=== PATIENT | female | born 1995 | race Caucasian/White ===

== ENCOUNTER 2018-11-12 16:15 | Outpatient (CLI) | payer OTHER, SELFPAY ==
--- NOTE | 2018-11-12 16:08 | DI.US_ITS ---
SYMPTOMS/DIAGNOSIS: POSITIVE TEST, UTERINE CRAMPING, ? ECTOPIC OB ULTRASOUND: Many abnormalities cannot be diagnosed. A normal exam does not exclude a congenital anomaly. Radiology No. [id number] LMP: 10/01/18 Exam Date: 11/12/18 [facility] wks days on EDC ([facility]) Confirmed: HISTORY: PREDICTED GESTATIONAL AGE NUMBER 6+0 weeks with a range of week to weeks. 1 Determined by___1STUS_X__LMP___HISTORY PLACENTA PRESENTATION Grade Cephalic___ Anterior___Posterior___ Breech____ Right Left Transverse(head right___ Fundal___Low-lying___Previa___ Transverse(head left___ Varying BIOMETRY AMNIOTIC FLUID BPD: mm weeks Normal HC: mm weeks AC: mm weeks FL: mm weeks AMNIOTIC FLUID INDEX >26 WK CRL: 1.9 mm 8+3 weeks Cisterna Magna: mm CI: RUQ: LUQ Cerebellum: cm EFW: grams Percentile RLQ: LLQ Yolk sac: 6 mm Total: cms Composite AGE= 8+3 wks EDC by US: 06/21/19 BIOPHYSICAL PROFILE ANATOMY IDENTIFIED SCORE 0/2 Heart: 4-Chamber___Rate:BPM 171 LVOT: RVOT: Amniotic Fluid(>2cms)____ Stomach: Kidneys: Respirations (>30 secs) Bladder: Post. Fossa: Body Flex/Extension 3 vessel cord: Ventricles: cord insertion: Lips:____ Extremity Flex/Extension spinal morphology: Nose: Total Score= Palate: NS=not seen COMMENTS: A transvaginal examination was carried out. A viable intrauterine lizama is demonstrated. The cardiac rate is 171 bpm. A yolk sac is identified. Based on the crown-rump measurements, a gestational age of 8 weeks and 3 days is suggested. The right ovary measures 2.8 x 1.6 x 1.8 cm and appears to contain a corpus luteum cyst. Incidental note is made of cholelithiasis in this patient. SUMMARY: No evidence of an ectopic . A viable 8.3 week intrauterine lizama is identified. Note is made of cholelithiasis. The kidneys are intact.
--- NOTE | 2018-11-12 16:59 | DI.VRAD_ITS ---
EXAM: US Retroperitoneal Limited, Kidneys EXAM DATE/TIME: 11/12/2018 4:07 PM CLINICAL HISTORY: 23 years old, female; Signs and symptoms; Lmp or gestational age (in weeks): Lmp 1-1-19 (? Unsure of dates); Other: Positive test; Mild mid pelvic cramping; TECHNIQUE: Real-time ultrasound of the retroperitoneum with image documentation. Examination was focused on the kidneys. COMPARISON: US PELVIS TRANSVAG 12/29/2013 3:41 PM FINDINGS: Gallbladder: A gallstone with layering sludge is seen in the gallbladder with no pericholecystic fluid or gallbladder wall thickening. Sonographic Whitmore's was not reported with the exam. Right kidney: No stones. No hydronephrosis. Left kidney: No stones. No hydronephrosis. IMPRESSION: Cholelithiasis without other acute findings. EXAM: US First Trimester, Transabdominal and US , Transvaginal EXAM DATE/TIME: 11/12/2018 4:07 PM CLINICAL HISTORY: 23 years old, female; Signs and symptoms; Lmp or gestational age (in weeks): Lmp 1-1-19 (? Unsure of dates); Other: Positive test; Mild mid pelvic cramping; TECHNIQUE: Real-time transabdominal obstetrical ultrasound of the maternal pelvis and a first trimester , less than 14 weeks 0 days, with image documentation. Transvaginal imaging was used for better evaluation of the fetus and adnexa. COMPARISON: US PELVIS TRANSVAG 12/29/2013 3:41 PM FINDINGS: GESTATION: Gestation: There is a single intrauterine gestation. [place]-rump length measurement is 1.9 cm for an estimated gestational age of 8 weeks 3 days. Normal-appearing yolk sac. Heart rate: 171 beats per minute Placenta: Unremarkable. No subchorionic bleed. Amniotic fluid: Amniotic and chorionic fluid are normal for gestational age. MATERNAL: Uterus: Unremarkable. Cervix: Cervix is closed. Right adnexa: There is an irregular hyperdense crenelated lesion in the right ovary, consistent with a corpus luteum. Left adnexa: Unremarkable. Intraperitoneal: No intraperitoneal free fluid. IMPRESSION: 1. Viable intrauterine gestation with estimated gestational age of 8 weeks 3 days. 2. No acute findings. Dictated and Authenticated by: Ellis Flannery MD. Ordering:PAUL Morrell MD
== END 2018-11-12 16:35 ==
PROVIDERS: PCP Nurse Practitioner; Visit Provider Nurse Practitioner Adult Health
DX: Z34.91 Encounter for supervision of normal pregnancy, unspecified, first trimester (principal); K80.20 Calculus of gallbladder without cholecystitis without obstruction; N83.11 Corpus luteum cyst of right ovary; R10.9 Unspecified abdominal pain
CPT/HCPCS: 76817

== ENCOUNTER 2018-12-12 09:17 | Outpatient (CLI) | payer OTHER, SELFPAY ==
[2018-12-12 10:31] LABS: Abs Immature Grans 0.02 k/cumm (0.0-0.09); Absolute Basophil Count 0.02 k/cumm (0.0-0.2); Absolute Eosinophil Count 0.11 k/cumm (0.0-0.7); Absolute Monocyte Count 0.76 k/cumm (0.11-0.7); Absolute Neutrophil Count 5.79 k/cumm (1.2-6.7); Basophils % 0.2; Eosinophils % 1.2; HCT 36.3 % (36.0-46.0); HGB 12.5 g/dL (12.0-15.5); Immature Grans % 0.2; Lymphocytes % 29.5; Mean Corp. HGB Concentration 34.4 g/dL (32.0-36.0); Mean Corpuscular Hemoglobin 28.5 pg (27.0-33.0); Mean Corpuscular Volume 82.9 fL (80-95); Mean Platelet Volume 10.9 fL (8.0-11.0); Neutrophils % 60.9; Platelet Count 316 x1000/uL (130-400); RBC 4.38 m/cumm (4.00-5.20); RBC Distribution Width 13.6 % (11.7-14.6)
[2018-12-12 11:18] LABS: TSH (W/Ref FT4) 2.73 uIU/mL (0.358-3.74)
[2018-12-13 09:35] LABS: Hepatitis C Ab w Rflx HCV PCR Negative (NEGAT)
[2018-12-13 10:29] LABS: HIV-1/2 Ag & Ab Screen Negative (NEGAT)
[2018-12-13 10:30] LABS: Hepatitis B Surface Ag Negative (NEGAT)
[2018-12-13 12:17] LABS: Rubella IgG Ab (UVM) Negative; Varicella IgG Antibody Positive
[2018-12-13 13:20] LABS: Chlamydia Result Negative; GC Result Negative; Specimen Description URINE
== END 2018-12-12 09:37 ==
PROVIDERS: PCP Nurse Practitioner; Visit Provider Obstetrics & Gynecology Maternal & Fetal Medicine
DX: Z34.91 Encounter for supervision of normal pregnancy, unspecified, first trimester (principal); Z01.84 Encounter for antibody response examination; Z11.3 Encounter for screening for infections with a predominantly sexual mode of transmission; Z11.4 Encounter for screening for human immunodeficiency virus [HIV]
CPT/HCPCS: 36415; 86787; 86803; 86900; 86901; 87340; 87389; 87491; 87536; 87591; 84443; 85025; 86762

== ENCOUNTER 2018-12-17 13:51 | Outpatient (CLI) | payer OTHER, SELFPAY ==
[2018-12-17 15:17] LABS: Glucose,1 Hr (Glucola) 121 mg/dL (80-140)
[2018-12-23 13:18] LABS: Misc Referral (MAYO) See Comments
== END 2018-12-17 14:11 ==
PROVIDERS: PCP Nurse Practitioner; Referring Provider Obstetrics & Gynecology; Visit Provider Obstetrics & Gynecology Maternal & Fetal Medicine
DX: Z34.91 Encounter for supervision of normal pregnancy, unspecified, first trimester (principal)
CPT/HCPCS: 36415; 82950; 85025

== ENCOUNTER 2018-12-25 19:53 | Outpatient (REF) | payer OTHER, SELFPAY | END 2018-12-25 20:13 | LOC: LBN 19:53 | PROVIDERS: PCP Nurse Practitioner; Visit Provider Obstetrics & Gynecology | DX: N39.0 Urinary tract infection, site not specified (principal) | CPT/HCPCS: 82565; 87086 ==

== ENCOUNTER 2019-02-11 14:01 | Outpatient (CLI) | payer OTHER, SELFPAY ==
[2019-02-11 18:36] LABS: ESR 55 MM/HR (0-20)
[2019-02-12 10:13] LABS: Rheumatoid Factor 9 IU/mL (<12.5)
[2019-02-12 15:03] LABS: ANA Interpretation Negative (NEGAT)
[2019-02-13 11:04] LABS: SS-A Antibody 1.4 Units (<20); SS-B (La) Ab, IgG 6.2 Units (<20)
[2019-02-13 20:34] LABS: Dilute Russell Viper Venom 37.6 secs (27.2-36.9); LA Cascade Summary SEE COMMENTS; Silica Clotting Time 45.1 sec (30.2-48.4)
== END 2019-02-11 14:21 ==
PROVIDERS: Internal Medicine; Obstetrics & Gynecology Maternal & Fetal Medicine; PCP Nurse Practitioner; Visit Provider Obstetrics & Gynecology
DX: M06.9 Rheumatoid arthritis, unspecified (principal); Z3A.15 15 weeks gestation of pregnancy; O09.92 Supervision of high risk pregnancy, unspecified, second trimester; M08.00 Unspecified juvenile rheumatoid arthritis of unspecified site
CPT/HCPCS: 36415; 85652; 86147; 87116; 86038; 86235; 86431

== ENCOUNTER 2019-02-13 15:38 | Outpatient (CLI) | payer OTHER, SELFPAY ==
[2019-02-13 16:52] LABS: ALT 17 U/L (12-78); AST 10 U/L (15-37); Alkaline Phosphatase 57 U/L (46-116); Anion Gap 15.3 mmol/L (3-11); BUN 6 mg/dL (7-18); Bilirubin, Total 0.1 mg/dL (0.2-1.0); CO2 18.7 mmol/L (21.0-32.0); CREATININE 0.68 mg/dL (0.55-1.02); Calcium 8.7 mg/dL (8.5-10.1); Chloride 103 mmol/L (98-107); Glucose 133 mg/dL (70-100); Potassium 3.4 mmol/L (3.5-5.1); Sodium 137 mmol/L (136-145); Total Protein 6.5 g/dL (6.4-8.2)
== END 2019-02-13 15:58 ==
PROVIDERS: PCP Nurse Practitioner; Visit Provider Obstetrics & Gynecology
DX: R21 Rash and other nonspecific skin eruption (principal)
CPT/HCPCS: 36415; 80053

== ENCOUNTER 2019-03-26 10:48 | Outpatient (CLI) | payer OTHER, SELFPAY ==
[2019-03-26 14:51] LABS: Abs Immature Grans 0.05 k/cumm (0.0-0.09); Absolute Basophil Count 0.01 k/cumm (0.0-0.2); Absolute Eosinophil Count 0.07 k/cumm (0.0-0.7); Absolute Lymphocyte Count 1.46 k/cumm (1.2-3.4); Absolute Monocyte Count 0.57 k/cumm (0.11-0.7); Absolute Neutrophil Count 6.21 k/cumm (1.2-6.7); Basophils % 0.1; Eosinophils % 0.8; HCT 34.2 % (36.0-46.0); HGB 11.3 g/dL (12.0-15.5); Immature Grans % 0.6; Lymphocytes % 17.4; Mean Corpuscular Hemoglobin 28.5 pg (27.0-33.0); Mean Corpuscular Volume 86.4 fL (80-95); Mean Platelet Volume 10.3 fL (8.0-11.0); Monocytes % 6.8; Neutrophils % 74.3; Platelet Count 320 x1000/uL (130-400); RBC 3.96 m/cumm (4.00-5.20); RBC Distribution Width 14.3 % (11.7-14.6); White Blood Cell Count 8.37 k/cumm (4.4-10.8)
[2019-03-26 14:58] LABS: Glucose,1 Hr (Glucola) 120 mg/dL (80-140)
== END 2019-03-26 11:08 ==
PROVIDERS: PCP Nurse Practitioner; Visit Provider Obstetrics & Gynecology
DX: Z34.92 Encounter for supervision of normal pregnancy, unspecified, second trimester (principal)
CPT/HCPCS: 36415; 82950; 85025

== ENCOUNTER 2019-04-11 09:22 | Emergency (ER) | payer OTHER, SELFPAY ==
[2019-04-11] VITALS (31 sets, daily range): BP systolic 103–142; BP diastolic 58–94; PULSE 91–119; RESP 13–23; TEMP 36.6; O2SAT 96–100
--- NOTE | 2019-04-11 09:43 | DI.US_ITS ---
SYMPTOMS/DIAGNOSIS: SHORTNESS OF BREATH, TACHYCARDIA, BILATERAL LOWER EXTREMITY ULTRASOUND: The deep veins of the lower extremities were evaluated sonographically. There is normal compression of the deep veins of each lower extremity. No evidence of a deep venous thrombus is seen in either lower extremity. The saphenofemoral junctions appear well maintained bilaterally. No focal fluid collections are seen in the soft tissues bilaterally. IMPRESSION: No evidence of a deep venous thrombus in either lower extremity. The findings were discussed with the Emergency Department on the date of the examination.
--- NOTE | 2019-04-11 09:47 | ED.GENADUL_ITS ---
Discharge Plan Disposition Patient Disposition: HOME Condition: Stable Discharge Details Chief Complaint: GenMedical Clinical Impression: Tachycardia, , Anemia Primary Care Provider: Tara Kumar ED Provider: Joe Villar Home Meds and New Rx's Prescriptions: Continued prenat.vits,jim,irl-qdlv-[id number] tablet 1 tab PO DAILY RF: 0 pantoprazole [Protonix] 20 mg tablet,delayed release (DR/EC) 20 mg PO DAILY Qty: 30 RF: 2 hydroxychloroquine [Plaquenil] 200 mg tablet 200 mg PO BID Qty: 60 RF: 2 folic acid 1 MG tablet 1 mg PO DAILY RF: 0 acetaminophen 325 MG tablet 650 mg PO PRN PRNQty: 0 RF: 0 Discharge Instructions Instructions: (ED), Anemia (ED) Additional Instructions: Continue to stay well-hydrated and get plenty of rest during . Continue to take your vitamins preferably with an iron supplementation. Return to the emergency department for new or significant worsening of symptoms otherwise keep your appointment [facility] as already arranged for next week Stand Alone Forms: Work Release Referrals: [facility] [Provider Group] (As previously scheduled) Discharge Data Discharge Date/Time-TO BE ENTERED AT DEPARTURE: 04/11/19 13:55 Medical Decision Making Patient presenting to the emergency department for chief complaint of tachycardia. Patient states that yesterday evening while at work she noted her heart rate to be in the 140s along with some lightheadedness. 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 Patient states that she went home from work at that point and has continued to have tachycardia in the upper 90s to the 110s. Patient denies any chest pain but does state some dyspnea on exertion and generalized malaise. Patient states that she is 29 weeks . Patient has past medical history of rheumatoid arthritis otherwise denies any cardiac history. Physical exam shows nontoxic well-appearing patient with tachycardia on exam otherwise clear lung sounds, no tachypnea, no hypoxia, mildly elevated blood pressure, otherwise nondiagnostic exam. Plan to do labs, EKG, and bilateral lower extremity ultrasounds for concern of PE. Review of labs show normal thyroid, nonspecific anemia, elevated d-dimer of 1000, elevated anion gap and slightly low magnesium otherwise nondiagnostic CMP, unremarkable urine. Patient was given 500 mL's of fluid but persistently remains tachycardic and has dyspnea on exertion when using the restroom. Given this I did discuss with patient risk versus benefit to obtain informed consent for further imaging and rule out of PE. After thorough discussion of risk of radiation exposure to both her and the baby, possible other diagnosis, and answering all questions patient had we decided to perform CT imaging of the chest. staff field engineer was present during this discussion. CT was performed and reviewed by radiologist and shows no acute signs of thrombosis/embolism. Patient was informed of these results. I did speak with OB on-call Dr. Cash whom stated she would follow-up with patient next week. Return precautions were discussed. I feel that there is high likelihood that this is normal tachycardia in and possibly secondary to patient's anemia. After discussion of diagnosis and plan of care patient has no further needs, questions, or concerns and states clear understanding to return to the emergency department for any worsening symptoms. ECG Data Prior ECG tracings: not available for review Interpretation: EKG shows sinus tachycardia, with rate of 107, there is present very subtle findings of S1, Q3, T3. No STEMI. HPI General Mode of arrival: ambulatory . Date/Time Provider Initiated Documentation: 04/11/19 09:22 . Limitations to Documentation: no limitations . Information obtained by: patient and RN notes reviewed . History of Present Illness 23 year old F presents to the emergency department with the chief complaint of Tachycardia, dyspnea on exertion, Quality is described as other (Denies any pain or discomfort), and is localized to the chest. Patient started experiencing this hour(s) (7) and it has been constant. No relieving factors improve symptom(s), No exacerbating factors reported . Patient notes no other symptoms.. Patient did receive the following treatments prior to arrival, none Related Data Home Medications Medication Instructions Recorded Confirmed folic acid 1 mg PO DAILY 10/19/15 04/11/19 acetaminophen 650 mg PO PRN PRN #0 09/02/17 04/11/19 prenat.vits,jim,ufm-qnzt-[id number] 1 tab PO DAILY 12/12/18 04/11/19 pantoprazole 20 mg tablet,delayed 20 mg PO DAILY #30 tab 12/25/18 04/11/19 release hydroxychloroquine 200 mg tablet 200 mg PO BID #60 tab 02/20/19 04/11/19 Previous Rx's Medication Instructions Recorded acetaminophen 650 mg PO PRN PRN #0 09/02/17 pantoprazole 20 mg tablet,delayed 20 mg PO DAILY #30 tab 12/25/18 release hydroxychloroquine 200 mg tablet 200 mg PO BID #60 tab 02/20/19 Allergies Allergy/AdvReac Type Severity Reaction Status Date / Time clindamycin Allergy Severe Verified 03/26/19 15:13 amoxicillin trihydrate Allergy Intermediate other Verified 03/26/19 15:13 [From Augmentin] Penicillins Allergy Intermediate blisters/hi Verified 03/26/19 15:13 ves potassium clavulanate Allergy Intermediate other Verified 03/26/19 15:13 [From Augmentin] capsaicin [From Capzasin] Allergy topical, Verified 03/26/19 15:13 swelling redness menthol [From Capzasin] Allergy topical, Verified 03/26/19 15:13 swelling redness General Stated Complaint: GenMedical ALVARO: 3 Review of Systems Constitutional Denies chills, Denies fever(s) and Reports malaise Cardiovascular Reports as per HPI, Denies chest pain, Denies chest pain with activity, Denies syncope, Denies irregular heart rhythm, Reports lightheadedness, Reports palpitations and Reports dyspnea on exertion Respiratory Denies cough, Denies hemoptysis and Reports dyspnea on exertion Gastrointestinal Denies abdominal pain, Denies nausea and Denies vomiting Genitourinary Reports urinary frequency, Denies dysuria and Denies urinary urgency Neurologic Denies syncope Endocrine Reports palpitations PFSH Medical History 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 Do you feel safe in your relationship?: Yes Additional Social history: Mother is Evie RN on BC. History History 1 Para Hx # Term Pregnancies Multiple births Hx # Pregnancies Ectopic pregnancies AB induced Hx Number of Living Children AB spontaneous Exam Const General: cooperative, healthy appearing, comfortable, no acute distress, not diaphoretic and not ill appearing Nutritional Appearance: average body habitus Orientation: alert, awake and oriented x3 Limitations: mental status not altered Neck Neck: normal visual inspection, full ROM, trachea midline, supple and no anterior neck swelling Resp Effort & Inspection: normal respiratory effort and able to speak in complete sentences Auscultation: clear to auscultation bilaterally Cardio Jugular venous pressure: no JVD Palpation: normal PMI Rate: tachycardic Rhythm: regular rhythm Heart Sounds: S1 normal, S2 normal, no click, no gallops, no murmurs and no rubs Bruits: no abdominal aortic bruits and no carotid bruits Pulses: radial pulses present bilaterally 2+ Neuro General: alert, awake, oriented x3, tone normal and moves all extremities Course Vital Signs Temperature 36.6 C 04/11/19 09:25 Pulse 110 H 04/11/19 09:25 Respiratory Rate 18 04/11/19 09:25 Blood Pressure 142/63 H 04/11/19 09:25 Pulse Oximetry 100 04/11/19 09:25 Temperature 36.6 C 04/11/19 09:25 Temperature Source Skin 04/11/19 09:25 Pulse 110 H 04/11/19 09:25 Respiratory Rate 18 04/11/19 09:29 Respiratory Effort Non-Labored 04/11/19 09:29 Respiratory Depth Normal 04/11/19 09:29 Respiratory Pattern Normal 04/11/19 09:29 Blood Pressure 142/63 H 04/11/19 09:25 Blood Pressure Position Sitting 04/11/19 09:25 Pulse Oximetry 100 04/11/19 09:25 Oxygen Delivery Method Room Air 04/11/19 09:25 Oxygen Flow Rate 0 04/11/19 09:25
[2019-04-11 10:07] LABS: Absolute Basophil Count 0.02 k/cumm (0.0-0.2); Absolute Eosinophil Count 0.07 k/cumm (0.0-0.7); Absolute Lymphocyte Count 1.09 k/cumm (1.2-3.4); Absolute Monocyte Count 0.95 k/cumm (0.11-0.7); Absolute Neutrophil Count 4.88 k/cumm (1.2-6.7); Basophils % 0.3; HCT 31.9 % (36.0-46.0); HGB 10.6 g/dL (12.0-15.5); Immature Grans % 1.4; Lymphocytes % 15.3; Mean Corp. HGB Concentration 33.2 g/dL (32.0-36.0); Mean Corpuscular Hemoglobin 28.3 pg (27.0-33.0); Mean Corpuscular Volume 85.3 fL (80-95); Mean Platelet Volume 10.4 fL (8.0-11.0); Monocytes % 13.4; Neutrophils % 68.6; Platelet Count 319 x1000/uL (130-400); RBC 3.74 m/cumm (4.00-5.20); RBC Distribution Width 14.3 % (11.7-14.6); White Blood Cell Count 7.11 k/cumm (4.4-10.8)
[2019-04-11] MEDS: Normal Saline 500 ML IV (10:17)
[2019-04-11 10:23] LABS: INR 0.9 (0.9-1.1); Prothrombin Time 9.3 sec (9.3-11.0)
[2019-04-11 10:27] LABS: ALT 14 U/L (12-78); AST 12 U/L (15-37); Albumin 2.6 g/dL (3.4-5.0); Alkaline Phosphatase 87 U/L (46-116); Anion Gap 14.4 mmol/L (3-11); BUN 4 mg/dL (7-18); Bilirubin, Total 0.2 mg/dL (0.2-1.0); CO2 18.6 mmol/L (21.0-32.0); CREATININE 0.46 mg/dL (0.55-1.02); Calcium 8.6 mg/dL (8.5-10.1); Chloride 106 mmol/L (98-107); Glucose 97 mg/dL (70-100); Potassium 3.5 mmol/L (3.5-5.1); Sodium 139 mmol/L (136-145); Total Protein 6.5 g/dL (6.4-8.2)
[2019-04-11 10:28] LABS: Bilirubin Negative (Negative); Blood Negative (Negative); Clarity Clear (Clear); Glucose Negative (Negative); Ketones Negative (Negative); Leukocyte Esterase Negative (Negative); Nitrite Negative (Negative); Specific Gravity 1.015 (1.005-1.025); Urobilinogen 0.2 EU/dL (Up TO 0.2); pH 6.5 (5-8)
--- NOTE | 2019-04-11 10:29 | NUR.NOTE ---
Nursing Note: Pt to DI
[2019-04-11 10:30] LABS: Magnesium 1.6 mg/dL (1.8-2.4)
[2019-04-11 10:34] LABS: D-Dimer 1000 ng/mlFEU (<500); PTT Activated 24.1 sec (21.0-31.4); Troponin I < 0.05 ng/mL (0.00-0.06)
[2019-04-11 10:36] LABS: NT-proBNP < 5 pg/mL
[2019-04-11 11:07] LABS: TSH (W/Ref FT4) 2.87 uIU/mL (0.358-3.74)
--- NOTE | 2019-04-11 12:30 | DI.CT_ITS ---
SYMPTOMS/DIAGNOSIS: SHORTNESS OF BREATH, TACHYCARDIA, CT ANGIOGRAPHY OF THE CHEST: CT angiography was performed with multi slice acquisition and multi planar and 3D reconstruction. CT angiography of the chest was performed according to protocol. There is no evidence of a pulmonary embolus. The thoracic aorta is intact and normal caliber. The heart size is within normal limits. No significant pericardial effusion is seen. No evidence of right ventricular dysfunction is present. No significant thoracic adenopathy, effusion or pneumothorax is identified. The lungs are clear. The tracheobronchial tree is unremarkable. The bones appear intact. No acute abnormality is seen in the upper abdominal images. There is cardiac and thoracic aortic motion noted. IMPRESSION: No acute abnormality. No evidence of an acute pulmonary embolus, thoracic aortic dissection or aneurysm. The findings were discussed with Joe Villar of the Emergency Department on the date of the examination.
[2019-04-11] MEDS: Omnipaque 350 MG/ML 100 ML BTL 79 ML IJ (12:31)
--- NOTE | 2019-04-11 13:54 | NUR.NOTE ---
Nursing Note: pt resting in bed, no signs of distress. Facial expression and body language relaxed. Discharged to home. instructions reviewed, understanding verbalized. VSS IV removed.
== END 2019-04-11 13:55 | disposition home or self-care (01) ==
PROVIDERS: Emergency Provider Nurse Practitioner Family; PCP Nurse Practitioner
DX: O99.012 Anemia complicating pregnancy, second trimester (principal); O99.412 Diseases of the circulatory system complicating pregnancy, second trimester; R00.0 Tachycardia, unspecified; R06.00 Dyspnea, unspecified; Z3A.29 29 weeks gestation of pregnancy
CPT/HCPCS: 36415; 71275; 80053; 93005; 96360; 99285; 81003; 83735; 83880; 84443; 84484; 85025; 85379; 85610; 85730; 93010; 93970; J3490

== ENCOUNTER 2019-04-18 01:06 | Outpatient (CLI) | payer OTHER, SELFPAY ==
--- NOTE | 2019-04-18 08:17 | MERGE_ITS ---
*[facility]* *[facility]* [address] [place] [address] Date of study: 04/18/2019 Transthoracic Echocardiography M-mode, complete 2D, complete spectral Doppler, and color Doppler *STUDY CONCLUSIONS* Impressions: Normal study. Summary: 1. Left ventricle: The cavity size was normal. Wall thickness was normal. Systolic function was normal. The estimated ejection fraction was 60-65%. Wall motion was normal; there were no regional wall motion abnormalities. 2. Right ventricle: The cavity size was normal. Wall thickness was normal. Systolic function was normal. 3. Pulmonary arteries: Pulmonary systolic pressure was within the normal range. *PATIENT PRESENTATION* Height: 160cm (63in ) S/D Pressure: 126 / 73 Weight: 88.9kg (195.6lb ) BSA: 2.03m^2 Test start time: 08:15 AM. Test stop time: 09:00 AM. PERFORMING Unknown PERFORMING [facility] NURSE CASE MANAGER Christi Jacob CONSULTING Juan Rayo ORDERING Juan Rayo REFERRING Juan Rayo *PROCEDURE DATA* Procedure information: This study was interpreted by [facility]. Pertinent images and digital data are archived for permanent storage and are available for subsequent review. No prior study was available for comparison. Study status: Routine. Transthoracic echocardiography. M-mode, complete 2D, complete spectral Doppler, and color Doppler. A Transthoracic Echocardiogram was performed. Scanning was performed from the parasternal, apical, subcostal, and suprasternal notch acoustic windows. Images were obtained using an [employer] sc 2000 cardiac ultrasound machine. Image quality was fair. Study completion: The patient tolerated the procedure well. History: PMH: 30 weeks gestation SOB, Tachycardia. *CARDIAC ANATOMY* Left ventricle: The cavity size was normal. Wall thickness was normal. Systolic function was normal. The estimated ejection fraction was 60-65%. Wall motion was normal; there were no regional wall motion abnormalities. Aortic valve: Trileaflet; normal thickness leaflets. Mobility was not restricted. Doppler: Transvalvular velocity was within the normal range. There was no stenosis. There was no significant regurgitation. VTI ratio of LVOT to aortic valve: 0.85. Valve area (VTI): 2.6cm^2. Indexed valve area (VTI): 1.3cm^2/m^2. Peak velocity ratio of LVOT to aortic valve: 0.79. Valve area (Vmax): 2.4cm^2. Indexed valve area (Vmax): 1.2cm^2/m^2. Mean velocity ratio of LVOT to aortic valve: 0.67. Valve area (Vmean): 2.1cm^2. Indexed valve area (Vmean): 1cm^2/m^2. Mean gradient (S): 4.1mm Hg. Peak gradient (S): 7.2mm Hg. Aorta: Aortic root: The aortic root was normal in size. Ascending aorta: The ascending aorta was normal in size. Mitral valve: Structurally normal valve. Mobility was not restricted. Doppler: Transvalvular velocity was within the normal range. There was no evidence for stenosis. There was no significant regurgitation. Valve area by pressure half-time: 4.2cm^2. Indexed valve area by pressure half-time: 2.1cm^2/m^2. Peak gradient (D): 6.4mm Hg. Left atrium: The atrium was normal in size. Right ventricle: The cavity size was normal. Wall thickness was normal. Systolic function was normal. Pulmonic valve: Poorly visualized. Doppler: Transvalvular velocity was within the normal range. There was no evidence for stenosis. There was mild regurgitation. Tricuspid valve: Structurally normal valve. Doppler: Transvalvular velocity was within the normal range. There was no evidence for stenosis. There was trivial regurgitation. Pulmonary artery: Poorly visualized. Pulmonary systolic pressure was within the normal range. Right atrium: The atrium was normal in size. Pericardium: There was no pericardial effusion. Systemic veins: Inferior vena cava: The vessel was normal in size. The respirophasic diameter changes were in the normal range (greater than or equal to 50%), consistent with normal central venous pressure. Measurements Left ventricle Value Reference LV ID, ED, PLAX 4.4 cm 3.5 - 6.0 LV ID, ES, PLAX 2.8 cm 2.1 - 4.0 LV PW thickness, ED, PLAX 0.8 cm LV end-diastolic volume, 1-p A2C 102 ml LV ejection fraction, 1-p A2C 60 % LV end-diastolic volume, 1-p A4C 109 ml LV ejection fraction, 1-p A4C 59 % LV e', lateral 0.165 m/sec LV E/e', lateral 8 LV e', medial 0.088 m/sec LV E/e', medial 14 LV e', average 0.127 m/sec LV E/e', average 10 Ventricular septum Value Reference IVS thickness, ED, PLAX 0.9 cm LVOT Value Reference LVOT ID, A-P 2.0 cm LVOT area 3.1 cm^2 LVOT peak velocity, S 1.06 m/sec LVOT mean velocity, S 0.64 m/sec LVOT VTI, S 19.6 cm LVOT peak gradient, S 4.5 mm Hg LVOT mean gradient, S 2 mm Hg Stroke volume (SV), LVOT DP 61 ml Stroke index (SV/bsa), LVOT DP 30 ml/m^2 Aortic valve Value Reference Aortic valve peak velocity, S 1.3 m/sec Aortic valve mean velocity, S 1 m/sec Aortic valve VTI, S 23.0 cm Aortic mean gradient, S 4.1 mm Hg Aortic peak gradient, S 7.2 mm Hg VTI ratio, LVOT/AV 0.85 Aortic valve area, VTI 2.6 cm^2 Velocity ratio, peak, LVOT/AV 0.79 Aortic valve area, peak velocity 2.4 cm^2 Velocity ratio, mean, LVOT/AV 0.67 Aortic valve area, mean velocity 2.1 cm^2 Aortic valve area/bsa, mean velocity 1 cm^2/m^2 Aorta Value Reference Aortic root ID, ED 2.5 cm Ascending aorta ID, A-P, S 2.5 cm Left atrium Value Reference LA ID, A-P, ES 4.0 cm LA ID/bsa, A-P 2.0 cm/m^2 <=2.2 LA volume, ES, 2-p 41 ml LA volume/bsa, ES, 2-p 20 ml/m^2 LA/aortic root ratio 1.61 Mitral valve Value Reference Mitral E-wave peak velocity 1.26 m/sec Mitral A-wave peak velocity 0.59 m/sec Mitral deceleration time 182 ms 150 - 230 Mitral pressure half-time 53 ms Mitral peak gradient, D 6.4 mm Hg Mitral E/A ratio, peak 2.13 Mitral valve area, PHT, DP 4.2 cm^2 Pulmonary arteries Value Reference PA pressure, S, DP 26 mm Hg <=30 Tricuspid valve Value Reference Tricuspid regurg peak velocity 2 m/sec Tricuspid peak RV-RA gradient 15.8 mm Hg Right atrium Value Reference RA area, ES, A4C 12.9 cm^2 8.3 - 19.5 Systemic veins Value Reference Estimated CVP 10 mm Hg Right ventricle Value Reference RV pressure, S, DP 26 mm Hg <=30 Legend: (L) and (H) kyara values outside specified reference range. I have personally reviewed the images and have reviewed and edited the reported findings. Electronically signed by Justine Jauregui 04/20/2019 13:47
== END 2019-04-18 01:26 ==
PROVIDERS: PCP Nurse Practitioner; Visit Provider Obstetrics & Gynecology
DX: R00.0 Tachycardia, unspecified (principal); R06.02 Shortness of breath; Z34.93 Encounter for supervision of normal pregnancy, unspecified, third trimester
CPT/HCPCS: 93306

== ENCOUNTER 2019-04-29 00:31 | Outpatient (CLI) | payer OTHER, SELFPAY ==
--- NOTE | 2019-04-29 15:32 | DI.US_ITS ---
SYMPTOMS/DIAGNOSIS: HIGH RISK , Z34.90, PT TOOK METHOTREXATE IN EARLY FOR RHEUMATOID ARTHRITIS OB ULTRASOUND: Predicted Gestational Age: Indication/History: 32+2 Wks Range: 31+2 to 33+2 Prior US done on: Determined by: X First US LMP X History EDC by prior US: For multiple gestations: Baby PLACENTA: Grade: I Location: X Anterior Posterior PRESENTATION: RT LT LOW LYING PREVIA Cephalic X Trans (Head RT LT ) Varied Breech BIOMETRY: Anatomy Identified: BPD: 87 mm 35+1 wks 4 chamber Heart Heart Rate 160 BPM HC: 320 mm 36 wks LVOT Post Fossa AC: 310 mm 35 wks RVOT Ventricles FL: 65 mm 33+4 wks Stomach Nose Bladder Lips Cisterna Magna: mm CI: 83.7 Kidneys Palate Cerebellum: mm 3 vessel cord Spine EFW: 2500 grms 97% Cord Insertion NS= not seen Composite Age (US) 35 wks Many abnormalities cannot be diagnosed. A normal exam does not exclude congenital abnormality. EDC by US: 06/03/19 Amniotic Fluid Index: Normal COMMENTS: 5 POUNDS 8 OUNCES RUQ: 4.7 LUQ: 3.8 RLQ: 4.3 LLQ: 3.9 Total: 16.7 cm Biophysical Profile: Score 0/2 ROYCE (>2cm) Respirations (>30 sec) Body flexion/extension Extremity flexion/extension TOTAL SCORE
== END 2019-04-29 00:51 ==
PROVIDERS: PCP Nurse Practitioner; Visit Provider Obstetrics & Gynecology
DX: Z34.93 Encounter for supervision of normal pregnancy, unspecified, third trimester (principal); O09.93 Supervision of high risk pregnancy, unspecified, third trimester
CPT/HCPCS: 76816

== ENCOUNTER 2019-05-20 15:04 | Outpatient (REF) | payer OTHER, SELFPAY ==
[2019-05-20 18:16] LABS: *AMPHETAMINES SCREEN URINE Negative (Negative); *BARBITURATES SCREEN URINE Negative (Negative); *BENZODIAZEPINES SCREEN URINE Negative (Negative); Cannabinoids THC Negative (Negative); Cocaine Screen,Urine Negative (Negative); METHADONE URINE SCREEN Negative (Negative); OPIATES URINE SCREEN Negative (Negative)
[2019-05-20 18:20] LABS: Tricyclic Antidepressants Negative (Negative)
[2019-05-25 12:30] LABS: Buprenorphine Negative; Norbuprenorphine Negative
== END 2019-05-20 15:24 ==
LOC: LBN 15:04
PROVIDERS: PCP Nurse Practitioner; Visit Provider Obstetrics & Gynecology
DX: Z34.93 Encounter for supervision of normal pregnancy, unspecified, third trimester (principal); Z36.85 Encounter for antenatal screening for Streptococcus B
CPT/HCPCS: 80307; 87081

== ENCOUNTER 2019-05-24 18:30 | Observation (INO) | payer OTHER, SELFPAY | END 2019-05-24 20:30 | disposition home or self-care (01) | LOC: BCD 05-26 10:46 → OBS 05-26 10:48 | PROVIDERS: Admitting Provider Obstetrics & Gynecology Gynecology; PCP Nurse Practitioner; Visit Provider Obstetrics & Gynecology Gynecology | DX: Z04.3 Encounter for examination and observation following other accident (principal); O47.03 False labor before 37 completed weeks of gestation, third trimester; W19.XXXA Unspecified fall, initial encounter | CPT/HCPCS: 59025 ==

== ENCOUNTER 2019-05-27 11:34 | Outpatient (CLI) | payer OTHER, SELFPAY | END 2019-05-27 11:54 | PROVIDERS: PCP Nurse Practitioner; Visit Provider Obstetrics & Gynecology | DX: O99.89 Other specified diseases and conditions complicating pregnancy, childbirth and the puerperium (principal); M06.9 Rheumatoid arthritis, unspecified; Z3A.36 36 weeks gestation of pregnancy | CPT/HCPCS: 59025 ==

== ENCOUNTER 2019-05-29 06:42 | Observation (INO) | payer OTHER, SELFPAY ==
[2019-05-29] MEDS: SUMAtriptan 50 MG TAB PO (04:38)
[2019-05-29] MEDS: Ondansetron O.D.T. 4 MG TABEF 8 MG PO (05:19)
[2019-05-29] MEDS: Metoclopramide 10 MG TAB PO (05:34)
[2019-05-29] MEDS: diphenhydrAMINE 25 MG CAP PO (05:35)
[2019-05-29] MEDS: Normal Saline Flush 10 ML SYR ×2 (08:39→09:12)
[2019-05-29] MEDS: Lactated Ringers 1,000 ML 999 ML IV (08:40)
[2019-05-29] MEDS: fentaNYL 100 MCG/2 ML VIAL 50 MCG IVP (09:12)
[2019-05-29 09:33] LABS: Bilirubin Negative (Negative); Blood Negative (Negative); Clarity Sl Cloudy (Clear); Glucose Negative (Negative); Ketones 40 mg/dL (Negative); Leukocyte Esterase Trace (Negative); Nitrite Negative (Negative); Urobilinogen 0.2 EU/dL (Up TO 0.2)
[2019-05-29] MEDS: Lactated Ringers 1,000 ML 125 ML IV (09:40)
[2019-05-29 09:55] LABS: Bacteria Many HPF (Negative); C & S Indicated? No/Sq. Contamination; Casts Negative LPF (Negative); Crystals Negative HPF (Negative); Epithelial Cells Many HPF (Negative); Mucus Negative (Negative); WBC 20-50 HPF (0-5)
[2019-05-29 11:09] LABS: Abs Immature Grans 0.03 k/cumm (0.0-0.09); Absolute Basophil Count 0.01 k/cumm (0.0-0.2); Absolute Eosinophil Count 0.05 k/cumm (0.0-0.7); Absolute Monocyte Count 0.58 k/cumm (0.11-0.7); Absolute Neutrophil Count 4.43 k/cumm (1.2-6.7); Basophils % 0.1; Eosinophils % 0.7; HCT 33.8 % (36.0-46.0); Immature Grans % 0.4; Lymphocytes % 26.1; Mean Corp. HGB Concentration 32.5 g/dL (32.0-36.0); Mean Corpuscular Hemoglobin 26.7 pg (27.0-33.0); Mean Platelet Volume 11.3 fL (8.0-11.0); Monocytes % 8.4; Neutrophils % 64.3; Platelet Count 203 x1000/uL (130-400); RBC 4.12 m/cumm (4.00-5.20); RBC Distribution Width 14.9 % (11.7-14.6)
[2019-05-29 11:20] LABS: ALT 15 U/L (14-59); AST 16 U/L (15-37); Albumin 2.4 g/dL (3.4-5.0); Alkaline Phosphatase 159 U/L (46-116); Anion Gap 13.8 mmol/L (3-11); BUN 4 mg/dL (7-18); Bilirubin, Total 0.3 mg/dL (0.2-1.0); CO2 18.2 mmol/L (21.0-32.0); Calcium 8.4 mg/dL (8.5-10.1); Chloride 107 mmol/L (98-107); Glucose 75 mg/dL (70-100); Potassium 3.9 mmol/L (3.5-5.1); Sodium 139 mmol/L (136-145); Total Protein 6.2 g/dL (6.4-8.2)
--- NOTE | 2019-05-29 14:15 | PGE_ITS ---
Date of Service Date of service: 05/29/19 Time of Service: 14:15 Assessment and Plan (1) Headache: Current visit: Yes Status: Acute (2) Nausea and vomiting: Current visit: Yes Status: Acute The patient did markedly feel better after IV fluid hydration, sleep and a single dose of IV fentanyl. Her symptoms have essentially resolved by the midpoint of the day. She is felt suitable for discharge. Follow-up in 1 week. (3) : Current visit: No Status: Acute Subjective Interval history since last seen: 23 year old @ 37 weeks gestation presents with acute onset of severe headache with nausea and vomiting last night. She reported no history of migraine headaches in the past. She has never had a migraine to this degree before. Her is complicated by rheumatoid arthritis. She denies any abdominal pain or contractions. Reports good movement. The pain is rated with significant photophobia. Objective Objective Clinical Data: Abnormal lab results 05/29/19 05/29/19 05/29/19 Range/Units 09:05 10:30 10:30 Hgb 11.0 L (12.0-15.5) g/dL Hct 33.8 L (36.0-46.0) % MCH 26.7 L (27.0-33.0) pg RDW 14.9 H (11.7-14.6) % MPV 11.3 H (8.0-11.0) fL Carbon Dioxide 18.2 L (21.0-32.0) mmol/L Anion Gap 13.8 H (3-11) mmol/L BUN 4 L (7-18) mg/dL Creatinine 0.50 L (0.55-1.02) mg/dL Calcium 8.4 L (8.5-10.1) mg/dL Alkaline Phosphatase 159 H (46-116) U/L Total Protein 6.2 L (6.4-8.2) g/dL Albumin 2.4 L (3.4-5.0) g/dL Urine Ketones 40 H (Negative) mg/dL Ur Leukocyte Esterase Trace H (Negative) Urine RBC 3-5 H (0-2) Vital Signs Pain Level 7 05/29/19 09:12 Intake & Output 05/28/19 05/29/19 05/29/19 23:59 11:59 23:59 Intake Total 948 / 948 Balance 948 / 948 Intake: IV 8 / 8 Laboratory Results WBC 6.90 k/cumm (4.4-10.8) 05/29/19 10:30 RBC 4.12 m/cumm (4.00-5.20) 05/29/19 10:30 Hgb 11.0 g/dL (12.0-15.5) L 05/29/19 10:30 Hct 33.8 % (36.0-46.0) L 05/29/19 10:30 MCV 82.0 fL (80-95) 05/29/19 10:30 MCH 26.7 pg (27.0-33.0) L 05/29/19 10:30 MCHC 32.5 g/dL (32.0-36.0) 05/29/19 10:30 RDW 14.9 % (11.7-14.6) H 05/29/19 10:30 Plt Count 203 x1000/uL (130-400) 05/29/19 10:30 MPV 11.3 fL (8.0-11.0) H 05/29/19 10:30 Immature Gran % 0.4 05/29/19 10:30 64.3 05/29/19 10:30 26.1 05/29/19 10:30 8.4 05/29/19 10:30 0.7 05/29/19 10:30 0.1 05/29/19 10:30 Absolute Neutrophils 4.43 k/cumm (1.2-6.7) 05/29/19 10:30 Absolute Lymphocytes 1.80 k/cumm (1.2-3.4) 05/29/19 10:30 Absolute Monocytes 0.58 k/cumm (0.11-0.7) 05/29/19 10:30 Absolute Eosinophils 0.05 k/cumm (0.0-0.7) 05/29/19 10:30 Absolute Basophils 0.01 k/cumm (0.0-0.2) 05/29/19 10:30 Sodium 139 mmol/L (136-145) 05/29/19 10:30 Potassium 3.9 mmol/L (3.5-5.1) 05/29/19 10:30 Chloride 107 mmol/L (98-107) 05/29/19 10:30 Carbon Dioxide 18.2 mmol/L (21.0-32.0) L 05/29/19 10:30 13.8 mmol/L (3-11) H 05/29/19 10:30 BUN 4 mg/dL (7-18) L 05/29/19 10:30 0.50 mg/dL (0.55-1.02) L 05/29/19 10:30 >= 60.00 (mL/min/1.73m2) 05/29/19 10:30 Glucose 75 mg/dL (70-100) 05/29/19 10:30 Calcium 8.4 mg/dL (8.5-10.1) L 05/29/19 10:30 0.3 mg/dL (0.2-1.0) 05/29/19 10:30 AST 16 U/L (15-37) 05/29/19 10:30 ALT 15 U/L (14-59) 05/29/19 10:30 159 U/L (46-116) H 05/29/19 10:30 6.2 g/dL (6.4-8.2) L 05/29/19 10:30 2.4 g/dL (3.4-5.0) L 05/29/19 10:30 Yellow (Yellow) 05/29/19 09:05 Sl cloudy (Clear) 05/29/19 09:05 7.0 (5-8) 05/29/19 09:05 Ur Specific [place] 1.010 (1.005-1.025) 05/29/19 09:05 Negative mg/dL (Negative) 05/29/19 09:05 40 mg/dL (Negative) H 05/29/19 09:05 Negative (Negative) 05/29/19 09:05 Negative (Negative) 05/29/19 09:05 Negative (Negative) 05/29/19 09:05 0.2 EU/dL (Up TO 0.2) 05/29/19 09:05 Ur Leukocyte Esterase Trace (Negative) H 05/29/19 09:05 3-5 (0-2) H 05/29/19 09:05 20-50 HPF (0-5) 05/29/19 09:05 Ur Epithelial Cells Many HPF (Negative) 05/29/19 09:05 Negative HPF (Negative) 05/29/19 09:05 Many HPF (Negative) 05/29/19 09:05 Negative LPF (Negative) 05/29/19 09:05 Negative (Negative) 05/29/19 09:05 Ur Culture Indicated? No/sq. contamination 05/29/19 09:05 Negative mg/dL (Negative) 05/29/19 09:05
[2019-05-29 14:23] LABS: PROTEIN 6.3 mg/dL
[2019-05-29 14:29] LABS: COMMENT (LAB VIEW ONLY) 31.86 mg/dL; Prot/Crea Ur Ratio 0.19
== END 2019-05-29 14:20 | disposition home or self-care (01) ==
LOC: OBS 06:46
PROVIDERS: Admitting Provider Obstetrics & Gynecology; PCP Nurse Practitioner; Visit Provider Obstetrics & Gynecology
DX: O26.893 Other specified pregnancy related conditions, third trimester (principal); R51 Headache; R11.2 Nausea with vomiting, unspecified; Z3A.37 37 weeks gestation of pregnancy; M06.9 Rheumatoid arthritis, unspecified
CPT/HCPCS: 80053; 96360; 99233; 81003; 81015; 82565; 84156; 85025; G0378; J3010

== ENCOUNTER 2019-06-03 00:41 | Outpatient (CLI) | payer OTHER, SELFPAY ==
--- NOTE | 2019-06-03 08:12 | DI.US_ITS ---
SYMPTOM/DIAGNOSIS: LARGE FOR GESTATIONAL AGE. 0 36.60X0. MATERNAL CARE EXCESSIVE GROWTH OB ULTRASOUND: Comparison is made with 29 April 2019. The fetus is in cephalic position. The placenta is anterior and Grade II The biometric measurements correspond to 40 weeks 2 days which is above the expected range based on previous dating. The estimated weight is 4079 grams corresponding to the 99th percentile. The amniotic fluid index is normal at 13.7 IMPRESSION: Fetus measuring large for gestational age. Predicted Gestational Age: Indication/History: 37 +2 Wks Range: 36 +2 to 38 +2 Prior US done on: 04/29/19 Determined by: XX First US LMP History EDC by prior US: 06/03/19 For multiple gestations: Baby PLACENTA: Grade: II Location: XX Anterior PRESENTATION: RT LT LOW LYING PREVIA FUNDAL Cephalic XX Trans (Head RT LT ) Varied Breech BIOMETRY: Anatomy Identified: BPD: 98 mm 40 +1 wks 4 chamber Heart XX Heart Rate 150 BPM HC: 356 mm 41 +5 wks LVOT Post Fossa AC: 369 mm 40 +6 wks RVOT Ventricles FL: 75 mm 38 +4 wks Stomach XX Nose Bladder Lips Cisterna Magna: mm CI: 81 Kidneys Palate Cerebellum: mm 3 vessel cord Spine EFW: 4079 grms 99 % Cord Insertion NS= not seen Composite Age (US) 40 +2 wks Many abnormalities cannot be diagnosed. A normal exam does not exclude congenital abnormality. EDC by US 06/01/19 Amniotic Fluid Index: Normal COMMENTS: RUQ: 6.46 LUQ: - - RLQ: 3.56 LLQ: 3.66 Total: 13.7 cm Biophysical Profile: Score 0/2 ROYCE (>2cm) Respirations (>30 sec) Body flexion/extension Extremity flexion/extension TOTAL SCORE
== END 2019-06-03 01:01 ==
PROVIDERS: PCP Nurse Practitioner; Visit Provider Obstetrics & Gynecology
DX: O36.63X0 Maternal care for excessive fetal growth, third trimester, not applicable or unspecified (principal)
CPT/HCPCS: 76816

== ENCOUNTER 2019-06-03 07:49 | Outpatient (CLI) | payer OTHER, SELFPAY | END 2019-06-03 08:09 | PROVIDERS: PCP Nurse Practitioner; Visit Provider Obstetrics & Gynecology | DX: O99.89 Other specified diseases and conditions complicating pregnancy, childbirth and the puerperium (principal); M06.9 Rheumatoid arthritis, unspecified; Z3A.37 37 weeks gestation of pregnancy | CPT/HCPCS: 59025 ==

== ENCOUNTER 2019-06-10 10:28 | Outpatient (CLI) | payer OTHER, SELFPAY | END 2019-06-10 10:48 | PROVIDERS: PCP Nurse Practitioner; Visit Provider Obstetrics & Gynecology | DX: O99.89 Other specified diseases and conditions complicating pregnancy, childbirth and the puerperium (principal); M06.9 Rheumatoid arthritis, unspecified; Z3A.38 38 weeks gestation of pregnancy | CPT/HCPCS: 59025 ==

== ENCOUNTER 2019-06-16 14:08 | Outpatient (CLI) | payer OTHER, SELFPAY ==
[2019-06-16 14:30] LABS: HCT 33.3 % (36.0-46.0); HGB 10.4 g/dL (12.0-15.5); Mean Corp. HGB Concentration 31.2 g/dL (32.0-36.0); Mean Corpuscular Hemoglobin 25.6 pg (27.0-33.0); Mean Platelet Volume 11.3 fL (8.0-11.0); Platelet Count 311 x1000/uL (130-400); RBC 4.06 m/cumm (4.00-5.20); RBC Distribution Width 15.7 % (11.7-14.6); White Blood Cell Count 6.05 k/cumm (4.4-10.8)
== END 2019-06-16 14:28 ==
PROVIDERS: PCP Nurse Practitioner; Visit Provider Obstetrics & Gynecology
DX: O36.63X1 Maternal care for excessive fetal growth, third trimester, fetus 1 (principal); Z01.812 Encounter for preprocedural laboratory examination; Z01.818 Encounter for other preprocedural examination
CPT/HCPCS: 36415; 85027; 86850; 86900; 86901

== ENCOUNTER 2019-06-17 05:59 | Inpatient (IN) | payer OTHER, SELFPAY ==
[2019-06-17 06:21] VITALS: BP 134/84; PULSE 83; RESP 18; TEMP 36.9; O2SAT 83
[2019-06-17 06:25] VITALS: BP 134/84; PULSE 83; RESP 18; TEMP 36.9; O2SAT 83
[2019-06-17] MEDS: Lactated Ringers 1,000 ML 125 ML IV ×2 (06:41→08:17)
[2019-06-17] MEDS: ceFAZolin 2 GM/50 ML BAG IVPB (07:43)
[2019-06-17] MEDS: NALBUPHINE 5 MG in Normal Saline 50 ML 100 MG IVPB ×2 (10:40→16:50)
[2019-06-17] MEDS: Ketorolac 30 MG/ML VIAL IVP ×2 (14:29→19:59)
[2019-06-17] MEDS: Normal Saline Flush 10 ML SYR IVP ×3 (14:32→19:59)
[2019-06-17] MEDS: Acetaminophen 325 MG TAB 650 MG PO (19:00)
[2019-06-18] MEDS: Ketorolac 30 MG/ML VIAL IVP ×2 (01:57→08:46)
[2019-06-18] MEDS: Normal Saline Flush 10 ML SYR IVP ×2 (01:58→08:47)
[2019-06-18 07:11] LABS: HCT 29.4 % (36.0-46.0); HGB 9.1 g/dL (12.0-15.5); Mean Corpuscular Hemoglobin 25.7 pg (27.0-33.0); Mean Corpuscular Volume 83.1 fL (80-95); Mean Platelet Volume 11.9 fL (8.0-11.0); Platelet Count 271 x1000/uL (130-400); RBC 3.54 m/cumm (4.00-5.20); White Blood Cell Count 10.21 k/cumm (4.4-10.8)
[2019-06-18] MEDS: oxyCODONE 5 mg/Acetaminophen 325 mg TAB PO ×2 (08:47→15:27)
[2019-06-18] MEDS: Measles, Mumps, & Rubella Vaccine 0.5 ML VIAL (11:20)
[2019-06-18] MEDS: Acetaminophen 325 MG TAB 650 MG PO (13:54)
[2019-06-18] MEDS: Ibuprofen 600 MG TAB PO ×2 (13:55→22:43)
--- NOTE | 2019-06-18 15:28 | W.PM.OP ---
Date of service: 06/17/19 Time of Service: 09:30 Operative Note Operative Note DATE OF PROCEDURE: 06/17/19 PRE-OP DIAGNOSIS: 39 weeks. Suspected macrosomia POST-OP DIAGNOSIS: same PROCEDURE: Primary low transverse section SURGEON: Juan Rayo ASSISTING SURGEON: Ilsa Ortiz ANESTHESIA: GETA ESTIMATED BLOOD LOSS: 700 PATHOLOGY: none sent COMPLICATIONS: None Patient was transported to: floor Patient's condition: stable Findings: 1. Delivered LBM weighing 8 lbs 9 oz. 8.9 with left club foot Procedure Description: The patient was taken to the operating room and after adequate spinal anesthesia was obtained the patient was placed in supine position with a left lateral tilt. The patient was prepped and draped in usual sterile manner. A Pfannenstiel skin incision was then made with a #10 scalpel and sharp dissection was carried down to the underlying layer fascia. Fascia was incised in the midline and the incision was carried laterally in either direction with Parrish scissors. The fascia was dissected off the underlying layer of rectus muscles using both blunt and sharp dissection. Rectus muscles were divided along the linea alba with blunt digital dissection the peritoneum was entered bluntly. A bladder blade was inserted. The vesicouterine flap was tented up with pickups and incised with Metzenbaum scissors. The incision was carried laterally in either direction with the Metzenbaum scissors and the bladder flap was then developed digitally. The lower uterine segment was incised in a transverse manner with a scalpel and the incision was carried laterally in either direction via stretch. Infant was found in cephalic presentation. Initially a forceps assist was attempted but placement was unable to be made. A vacuum assist with a Kiwi with 1 pop-off was used to extract the fetus. The infant was delivered atraumatically. Mouth and nose were suctioned. The cord was clamped and cut. The infant was handed off to the awaiting trim and burr operator. The placenta was manually extracted. The uterus was cleared of all clots and debris. A curettage with a Josep curette was used to remove some residual membranes near the fundus. The hysterotomy was closed witha running locked stitch of #1 chromic. A second imbricating layer of #1 chromic in a Lambert stitch completed the repair. Excellent hemostasis was noted. The bladder flap was reapproximated with a running stitch of 3-0 Vicryl. The gutters were cleared of all clots and debris. The peritoneum was closed with a running stitch of 2-0 Vicryl. The fascia was closed with a running stitch of 0 Vicryl. The subcutaneous tissue was closed with interrupted sutures of 3-0 Vicryl and the skin was closed with a running set take a stitch of 4 Monocryl. Dermabond was applied. The procedure was concluded at this point. Sponge, lap and needle counts were correct at the conclusion of the procedure. The patient was transferred to PACU in stable condition.
[2019-06-18] MEDS: Docusate Sodium 100 MG CAP PO (22:42)
[2019-06-19] MEDS: oxyCODONE 5 mg/Acetaminophen 325 mg TAB PO ×2 (02:24→10:22)
[2019-06-19] MEDS: Ibuprofen 600 MG TAB PO ×2 (07:54→14:14)
== END 2019-06-19 15:30 | disposition home or self-care (01) | DRG 788 ==
LOC: PDS 09:41 → OBS 09:41
PROVIDERS: Admitting Provider Obstetrics & Gynecology; PCP Nurse Practitioner; Visit Provider Obstetrics & Gynecology
PROC: 10D00Z1 Extraction of Products of Conception, Low, Open Approach (ICD-10-PCS; CPT 59514; principal; 2019-06-17 07:30)
DX: O66.2 Obstructed labor due to unusually large fetus (principal); Z37.0 Single live birth; Z3A.39 39 weeks gestation of pregnancy; O99.89 Other specified diseases and conditions complicating pregnancy, childbirth and the puerperium; M06.9 Rheumatoid arthritis, unspecified; Z23 Encounter for immunization
CPT/HCPCS: 59514; 36415; 85027; J0690; J1885; J2370; J2405; J2590; J3010; J3490

== ENCOUNTER 2019-06-20 11:05 | Outpatient (CLI) | payer OTHER, SELFPAY | END 2019-06-20 11:25 | PROVIDERS: PCP Nurse Practitioner; Visit Provider Obstetrics & Gynecology | DX: Z39.1 Encounter for care and examination of lactating mother (principal) | CPT/HCPCS: E0602 ==

== ENCOUNTER 2019-07-27 09:47 | Outpatient (CLI) | payer OTHER, SELFPAY ==
[2019-07-27 10:29] LABS: Abs Immature Grans 0.02 k/cumm (0.0-0.09); Absolute Basophil Count 0.02 k/cumm (0.0-0.2); Absolute Eosinophil Count 0.15 k/cumm (0.0-0.7); Absolute Lymphocyte Count 2.23 k/cumm (1.2-3.4); Absolute Neutrophil Count 6.83 k/cumm (1.2-6.7); Basophils % 0.2; Eosinophils % 1.5; HCT 37.3 % (36.0-46.0); HGB 11.6 g/dL (12.0-15.5); Immature Grans % 0.2; Lymphocytes % 22.4; Mean Corp. HGB Concentration 31.1 g/dL (32.0-36.0); Mean Corpuscular Volume 80.4 fL (80-95); Mean Platelet Volume 10.1 fL (8.0-11.0); Neutrophils % 68.7; Platelet Count 499 x1000/uL (130-400); RBC 4.64 m/cumm (4.00-5.20); RBC Distribution Width 15.6 % (11.7-14.6); White Blood Cell Count 9.95 k/cumm (4.4-10.8)
[2019-07-27 10:31] LABS: Bilirubin Negative (Negative); Blood Negative (Negative); Clarity Clear (Clear); Glucose Negative (Negative); Ketones Negative (Negative); Leukocyte Esterase Negative (Negative); Nitrite Negative (Negative); Urobilinogen 0.2 EU/dL (Up TO 0.2)
[2019-07-27 11:36] LABS: ALT 26 U/L (14-59); AST 16 U/L (15-37); Albumin 3.8 g/dL (3.4-5.0); Alkaline Phosphatase 99 U/L (46-116); Anion Gap 10.7 mmol/L (3-11); BUN 12 mg/dL (7-18); Bilirubin, Total 0.3 mg/dL (0.2-1.0); CO2 25.3 mmol/L (21.0-32.0); CREATININE 0.75 mg/dL (0.55-1.02); Calcium 9.2 mg/dL (8.5-10.1); Chloride 105 mmol/L (98-107); Glucose 88 mg/dL (70-100); Potassium 4.7 mmol/L (3.5-5.1); Sodium 141 mmol/L (136-145); Total Protein 7.4 g/dL (6.4-8.2)
== END 2019-07-27 10:07 ==
PROVIDERS: PCP Nurse Practitioner; Visit Provider Obstetrics & Gynecology
DX: M54.9 Dorsalgia, unspecified (principal)
CPT/HCPCS: 36415; 80053; 81003; 85025

== ENCOUNTER 2019-07-31 01:36 | Outpatient (CLI) | payer OTHER, SELFPAY ==
--- NOTE | 2019-07-31 07:46 | DI.US_ITS ---
EXAM: US ABDOMEN CLINICAL HISTORY: RUQ pain, R10.11 TECHNIQUE: Ultrasound performed using standard protocol. COMPARISON: CT CHEST PE CTA from 04/11/2019 FINDINGS: The liver is normal in size and echogenicity. No focal liver lesions or biliary dilatation is seen. The gallbladder shows a mobile stone measuring 2 centimeters. A few other smaller stones are also s een. There is no gallbladder wall thickening or abnormal gallbladder distension. No sonographic Mur phy sign was elicited. The pancreas, spleen and kidneys are unremarkable. The aorta is normal in di ameter. No ascites seen. IMPRESSION: Cholelithiasis. No findings to suggest acute cholecystitis.
== END 2019-07-31 01:56 ==
PROVIDERS: PCP Nurse Practitioner; Visit Provider Obstetrics & Gynecology
DX: R10.11 Right upper quadrant pain (principal); K80.20 Calculus of gallbladder without cholecystitis without obstruction
CPT/HCPCS: 76700

== ENCOUNTER 2019-08-27 09:41 | Day surgery (SDC) | payer OTHER, SELFPAY ==
[2019-08-27] VITALS (10 sets, daily range): BP systolic 104–117; BP diastolic 37–68; PULSE 54–77; RESP 15–26; TEMP 36–36.8; O2SAT 96–100
--- NOTE | 2019-08-27 07:07 | ROE_ITS ---
Date of service: 08/27/19 Time of Service: 12:21 Operative Note Operative Note DATE OF PROCEDURE: 08/27/19 PRE-OP DIAGNOSIS: Billiary Cholic POST-OP DIAGNOSIS: same PROCEDURE: Laparoscopic Cholecystectomy SURGEON: Alicia Dominguez SECOND BALLER: Ilsa Ortiz ANESTHESIA: GETA and regional ESTIMATED BLOOD LOSS: 20 PATHOLOGY: other (Gallbladder) COMPLICATIONS: None Patient was transported to: PACU Patient's condition: stable Indications: Mrs Burton is a pleasant 23 year old female who is 9 weeks that is here today for RUQ pain. She states that it started just after she had her son 9 weeks ago. At first it was pain in her RUQ that radiated into the right chest and to her back. 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 She was started on Actemra after delivering and has had no improvement in her symptoms. She also has episodes when sleeping flat. She has started to experience nausea and increase in pain when she eats. Laparoscopic Cholecystectomy was recommended. Risks, benefits, complications were reviewed with the patient in the office. C omplications include but are not limited to bleeding, infection, injury to stomach, small bowel and large bowel, injury to the pancreas, injury to the common bile duct necessitating drainage and referral to tertiary center for repair, bile leak, adverse reactions to the medications, complications of intubation including a sore throat or injury to the uvula, ME, stroke and even . Questions were entertained and answered to her satisfaction and she wished to proceed. No guarantees were given or implied. Findings: Normal appearing Gallbladder with small stones Procedure Description: After informed consent was obtained the patient was taken to the PACU and anesthesia performed a erector spine block on the right for postoperative comfort. Once the block was in place the patient was brought to the operating room, placed in a supine position and monitors were applied. SCDs were applied to her lower extremities and she was placed under general anesthesia and intubated without difficulty. Once intubated a Mondragon catheter was placed in a standard sterile fashion. Her abdomen was then prepped and draped in a sterile fashion using ChloraPrep. At this point a timeout was done and the patient's name, date of , procedure type, allergies to medications, metal in her body, antibiotic and DVT prophylaxis, and fire risk was assessed. At this point half percent Marcaine was injected just above the umbilicus into the dermis and subcutaneous tissue. A 5 mm incision was made with an 11 blade. The skin next to the incision was grasped with penetrating towel clamps and while pulling up on the skin I tried to placea 5 mm port but could not get through the fascia without having to push too hard. The skin incision was widened and the fascia was grasped with cockers. The fascia was opened sharply with scissors and the 5 mm port was placed under direct visualization. The ab domen was insuflated and then 3 more ports were placed. A 12 mm port was placed in the subxiphoid area and two 5 mm ports were placed in the right upper quadrant. The liver was inspected and looked normal. The patient's bed was then turned to the left and her head was brought up. The gallbladder was grasped at the body and pushed towards the right shoulder, this allowed me to visualize the neck of the gallbladder. The neck was grasped and pulled towards the right flank and down allowing me to visualize the lymph node. Using a [place] dissector with cautery the lymph node was gently dissected away from the tissues and the fatty tissue was also dissected away. The cystic duct was identified it was normal in size. The duct was dissected 360 degrees using the [place] dissector in order for me to visualize its entrance into the gallbladder. Liver was noted behind it. There were no other structures right behind. Critical view was achieved. 3 clips were placed one proximal and 2 distal and the cystic duct was cut. The cystic artery was then identified and dissected 360 degrees. It was located just medial to the cystic duct. It was visualized going into the gallbladder. Once dissected 3 more clips were placed one proximal and 2 distal and the artery was cut. Using the hook dissector the gallbladder was then dissected away from the liver bed and placed into an Endo Catch bag and pulled through the 12 mm port site. The 12 mm port was placed back into the abdomen under direct visualization. The liver bed was inspected no bleeding was noted. The abdomen was then irrigated with 500 cc of normal saline until the effluent was clear. Once all the fluid was suctioned out, the rest of the local anesthetic mixture was injected above the liver to help with postoperative right shoulder pain. The 12 mm and the 2 right upper quadrant ports were removed under direct visualization and no bleeding was noted from the fascia. The abdomen was deflated completely and lastly the umbilical port was removed. 10 cc of exparel was then injected into the umbilical port site. The skin was cleaned and the incisions were closed with 4-0 Vicryl. The skin was dried and skin affix was applied over the closed incisions. Needle and sponge counts were correct at the end of the case. The Mondragon catheter was removed. At this point the patient was woken up, extubated and taken back to recovery in stable condition. There were no immediate complications.
--- NOTE | 2019-08-27 07:09 | W.PM.DSUDISC ---
Discharge Plan Disposition Patient Disposition: HOME Condition: Good Discharge Details Reason For Visit: Biliary Cholic Attending Provider: Alicia Dominguez Primary Care Provider: Tara Kumar Home Meds and New Rx's Prescriptions: New ibuprofen 600 mg tablet 600 mg PO Q6H PRN (Reason: pain) Qty: 30 RF: 0 Continued cholecalciferol (vitamin D3) 2,000 unit capsule 6,000 unit PO DAILY RF: 0 Mirena 20 mcg/24 hours (5 yrs) 52 mg intrauterine device 1 device IY ONCE RF: 0 (DME) breast pump Device See Rx Instructions .ROUTE .MEDSUPPLY Qty: 1 RF: 0 Actemra 162 mg/0.9 mL syringe 162 mg SC QWEEK RF: 0 folic acid 1 MG tablet 1 mg PO DAILY RF: 0 acetaminophen 325 MG tablet 650 mg PO PRN PRNQty: 0 RF: 0 Discharge Instructions Instructions: Laparoscopic Cholecystectomy (DC) Additional Instructions: Activity at Home after surgery: 1. Make sure you walk outside at least 4 times per day 2. You should be able to climb a flight of stairs 3. No driving while in pain or taking pain medications 4. No strenuous activity or heavy lifting for 2 weeks (laparoscopic surgery) Diet, Nutrition, & wound healin. Avoid alcohol until after you are recovered from your surgery 2. Make sure to eat plenty of lean protein (meat, fish, eggs, cottage cheese, beans) 3. Eat a variety of fruits and vegetables. Eat plenty of high fiber foods to avoid constipation. 4. Drink plenty of liquids to stay hydrated and avoid constipation Pain Medications: 1. Alternate Tylenol 650 mg and Ibuprofen 600 mg every 3 hours 2. If a narcotic has been prescribed take as directed only for breakthrough pain Other Medications: Start the Actemra next week For Constipation: 1. Take Milk of Magnesia or MiraLax as needed for constipation Other: 1. You may shower daily. Do not scrub the incisions 2. Do not soak the incisions for 1 week 3. You may alternate ice and heat as needed for pain and swelling Wound Care: 1. Keep the incisions clean and dry Please call our office if you develop: 1. Fevers >101.5 2. Nausea or Vomiting 3. Worsening pain 4. Redness and thick discharge from the wounds If after hours please call the Hospital at and ask to speak to the on-call surgeon Activity:: no lifting, pulling or pushing >20 lb x 2 weeks Diet:: As Tolerated Discharge Orders Discharge Orders: Discharge Order (Routine); Ordered 08/27/19 Ordered By: Alicia Dominguez DS: Diagnosis Discharge Diagnosis (1) Recurrent biliary colic: Status: Acute (2) S/P laparoscopic cholecystectomy: Status: Acute
[2019-08-27] MEDS: Lactated Ringers 1,000 ML 80 ML IV (10:20)
[2019-08-27] MEDS: Bupivacaine LIPOSOME/PF 133 MG/10 ML VIAL IJ ×2 (10:55→12:03)
[2019-08-27] MEDS: Bupivacaine 0.5% Pres-Free 30 ML VIAL (10:55)
[2019-08-27] MEDS: CIPROFLOXACIN 400 MG/200 ML BAG 200 MG IVPB (11:04)
[2019-08-27] MEDS: metroNIDAZOLE 500 MG/100 ML BAG 100 MG IVPB (11:28)
[2019-08-27] MEDS: Bupivacaine 0.25% Pres-Free 30 ML VIAL (11:30)
--- NOTE | 2019-08-27 11:57 | GB_PTH ---
PATIENT: Merlyn Burton LOC: [facility] U#:[id number] AGE/SX: 23/F ROOM: RE08/27/[address]: Alicia Dominguez MD : 1995 BED: DIS: 08/27/2019 SPEC #: [id number] RECD: 08/27/19 12:53 STATUS: MAXIMILIAN REQ #: [id number] ARNAV: 08/27/19 11:[address]: Alicia Dominguez DEPT: Surgical Specimen RECD BY: Latoya Flynn ENTERED: 08/27/19 12:53 SP TYPE: GB OTHR DR: Tara Kumar APRN Tissues: 1 - GALLBLADDER Procedures: GROSS AND MICRO LEVEL 3 Comments: [id number]
[2019-08-27] MEDS: fentaNYL 100 MCG/2 ML VIAL IVP (13:00)
[2019-08-27] MEDS: Droperidol 5 MG/2 ML VIAL 0.625 MG IVP (13:15)
== END 2019-08-27 15:27 | disposition home or self-care (01) ==
PROVIDERS: PCP Nurse Practitioner; Visit Provider Surgery
PROC: 0FT44ZZ Resection of Gallbladder, Percutaneous Endoscopic Approach (ICD-10-PCS; CPT 47562; principal; 2019-08-27 11:15)
DX: K80.10 Calculus of gallbladder with chronic cholecystitis without obstruction (principal); G89.18 Other acute postprocedural pain
CPT/HCPCS: 47562; 76942; 81025; 88304; J0744; J1100; J1790; J1885; J2250; J2405; J3010

== ENCOUNTER 2019-11-29 12:55 | Outpatient (CLI) | payer OTHER, SELFPAY ==
[2019-11-29] MEDS: cefTRIAXone 2 GM VIAL IM (13:25)
== END 2019-11-29 13:15 ==
PROVIDERS: PCP Nurse Practitioner; Visit Provider Advanced Practice Midwife
DX: O91.22 Nonpurulent mastitis associated with the puerperium (principal)
CPT/HCPCS: J0696

== ENCOUNTER 2020-07-05 01:45 | Outpatient (CLI) | payer OTHER, SELFPAY ==
[2020-07-05 12:30] LABS: HCT 45.5 % (36.0-46.0); HGB 15.1 g/dL (11.2-15.7)
[2020-07-05 12:31] LABS: ALT 23 U/L (14-59); AST 15 U/L (15-37); Albumin 3.9 g/dL (3.4-5.0); Alkaline Phosphatase 70 U/L (46-116); Anion Gap 12.5 mmol/L (3-11); BUN 9 mg/dL (7-18); Bilirubin, Total 0.4 mg/dL (0.2-1.0); C-Reactive Protein 0.22 mg/dL (0.0-0.3); CO2 20.5 mmol/L (21.0-32.0); CREATININE 0.74 mg/dL (0.55-1.02); Chloride 104 mmol/L (98-107); Glucose 106 mg/dL (74-106); Potassium 4.3 mmol/L (3.5-5.1); Sodium 137 mmol/L (136-145); Total Protein 6.9 g/dL (6.4-8.2)
[2020-07-05 13:12] LABS: ESR 10 mm/hr (0-20)
== END 2020-07-05 02:05 ==
PROVIDERS: PCP Nurse Practitioner; Visit Provider Nurse Practitioner Family
DX: M08.80 Other juvenile arthritis, unspecified site (principal); Z79.899 Other long term (current) drug therapy
CPT/HCPCS: 36415; 80053; 85652; 85014; 85018; 86140

== ENCOUNTER 2020-07-05 13:11 | Outpatient (CLI) | payer OTHER, SELFPAY ==
--- NOTE | 2020-07-05 08:26 | DI.RAD_ITS ---
EXAM: XR ARTHRITIS SERIES CLINICAL HISTORY: ABDULKADIR,? EVIDENCE OF INFLAMMATORY ARTHRITIS TECHNIQUE: COMPARISON: No exams were available for comparison FINDINGS: Two views of each hand and wrist were obtained. Cartilaginous joint spaces appear fairly well mainta ined. Bones appear normally mineralized. Bony alignment is within normal limits except for mild uln ar minus variance bilaterally. No specific evidence of arthritis. IMPRESSION: RADIATION DOSE DELIVERED: Total DLP
== END 2020-07-05 13:31 ==
PROVIDERS: PCP Nurse Practitioner; Visit Provider Nurse Practitioner Family
DX: M08.88 Other juvenile arthritis, other specified site (principal)
CPT/HCPCS: 73120

== ENCOUNTER 2020-08-24 01:57 | Outpatient (RCR) | payer OTHER, SELFPAY ==
[2020-08-10] VITALS (7 sets, daily range): BP systolic 118–141; BP diastolic 74–84; PULSE 78–96; RESP 17–19; TEMP 37–37.4; O2SAT 98–100
[2020-08-10] MEDS: Acetaminophen 325 MG TAB 650 MG PO (08:13)
[2020-08-10] MEDS: diphenhydrAMINE 25 MG CAP PO (08:13)
[2020-08-10] MEDS: inFLIXimab 300 MG in Normal Saline 250 ML 125 MG IVPB (08:58)
[2020-08-10] MEDS: Normal Saline Flush 10 ML SYR IVP (08:58)
[2020-08-24 10:16] VITALS: BP 111/72; PULSE 86; RESP 19; TEMP 37; O2SAT 99
[2020-08-24 10:34] VITALS: BP 122/73; PULSE 79; RESP 18; TEMP 37.1; O2SAT 98
[2020-08-24] MEDS: Normal Saline Flush 10 ML SYR IVP (10:35)
[2020-08-24] MEDS: inFLIXimab 300 MG in Normal Saline 250 ML 125 MG IVPB (10:35)
[2020-08-24 10:50] VITALS: BP 115/73; PULSE 80; RESP 17; TEMP 37; O2SAT 100
[2020-08-24 11:04] VITALS: BP 114/76; PULSE 74; RESP 18; TEMP 37; O2SAT 99
[2020-08-24 11:19] VITALS: BP 109/71; PULSE 85; RESP 18; TEMP 37; O2SAT 99
[2020-08-24 11:49] VITALS: BP 111/71; PULSE 72; RESP 18; TEMP 37.1; O2SAT 99
== END 2020-08-30 23:59 | disposition home or self-care (01) ==
LOC: INF 01:57
PROVIDERS: PCP Nurse Practitioner; Visit Provider Nurse Practitioner Family
DX: M08.88 Other juvenile arthritis, other specified site (principal)
CPT/HCPCS: 96365; 96366; 96413; 96415; J1745

== ENCOUNTER 2020-09-30 02:30 | Outpatient (RCR) | payer OTHER, SELFPAY ==
[2020-09-30] VITALS (7 sets, daily range): BP systolic 110–137; BP diastolic 66–80; PULSE 63–81; RESP 18–19; TEMP 36.4–36.8; O2SAT 98–100
[2020-09-30] MEDS: diphenhydrAMINE 25 MG CAP PO (08:56)
[2020-09-30] MEDS: Normal Saline Flush 10 ML SYR IVP (08:56)
[2020-09-30] MEDS: Acetaminophen 325 MG TAB 650 MG PO (08:56)
[2020-09-30] MEDS: inFLIXimab 300 MG in Normal Saline 250 ML 125 MG IVPB (09:08)
== END 2020-09-30 23:59 | disposition home or self-care (01) ==
LOC: INF 02:30
PROVIDERS: PCP Nurse Practitioner; Visit Provider Nurse Practitioner Family
DX: M08.88 Other juvenile arthritis, other specified site (principal)
CPT/HCPCS: 96365; 96366; 96413; 96415; J1745

== ENCOUNTER 2020-11-23 08:00 | Outpatient (RCR) | payer OTHER, SELFPAY ==
[2020-11-23] VITALS (7 sets, daily range): BP systolic 108–132; BP diastolic 73–89; PULSE 71–99; RESP 17–19; TEMP 37–37.2; O2SAT 98–99
[2020-11-23] MEDS: diphenhydrAMINE 25 MG CAP PO (08:00)
[2020-11-23] MEDS: Acetaminophen 325 MG TAB 650 MG PO (08:00)
[2020-11-23] MEDS: Normal Saline Flush 10 ML SYR IVP (08:00)
[2020-11-23] MEDS: inFLIXimab 300 MG in Normal Saline 250 ML 125 MG IVPB (08:30)
[2020-11-23 11:07] LABS: Abs Immature Grans 0.02 10^3/uL (0.0-0.06); Absolute Basophil Count 0.04 10^3/uL (0.0-0.2); Absolute Eosinophil Count 0.12 10^3/uL (0.0-0.7); Absolute Lymphocyte Count 2.06 10^3/uL (1.2-3.4); Absolute Monocyte Count 0.46 10^3/uL (0.1-0.8); Absolute Neutrophil Count 3.18 10^3/uL (1.2-6.7); Basophils % 0.7; HCT 42.1 % (36.0-46.0); HGB 14.3 g/dL (11.2-15.7); Immature Grans % 0.3; MCH 28.8 pg (27.0-33.0); MCV 84.7 fL (80-95); MPV 10.2 fL (8.0-11.0); Monocytes % 7.8; Neutrophils % 54.2; Nucleated RBC 0 %; Platelet Count 353 10^3/uL (130-400); RBC 4.97 10^6/uL (3.93-5.22); RDW 12.5 % (11.7-14.6); RDW-SD 38.4 fL; WBC 5.88 10^3/uL (4.4-10.8)
[2020-11-23 11:17] LABS: ALT 29 U/L (14-59); AST 15 U/L (15-37); Albumin 3.7 g/dL (3.4-5.0); Alkaline Phosphatase 66 U/L (46-116); Anion Gap 9.3 mmol/L (3-11); BUN 11 mg/dL (7-18); Bilirubin, Total 0.4 mg/dL (0.2-1.0); C-Reactive Protein 0.12 mg/dL (0.0-0.3); CO2 23.7 mmol/L (21.0-32.0); CREATININE 0.7 mg/dL (0.55-1.02); Calcium 8.7 mg/dL (8.5-10.1); Chloride 105 mmol/L (98-107); Glucose 84 mg/dL (74-106); Potassium 3.9 mmol/L (3.5-5.1); Sodium 138 mmol/L (136-145); Total Protein 7.2 g/dL (6.4-8.2)
[2020-11-24 09:40] LABS: ESR 16 mm/hr (<or=20)
== END 2020-11-28 23:59 | disposition home or self-care (01) ==
LOC: INF 08:00
PROVIDERS: Nurse Practitioner Family; PCP Nurse Practitioner; Visit Provider Nurse Practitioner Family
DX: M08.00 Unspecified juvenile rheumatoid arthritis of unspecified site (principal); Z79.899 Other long term (current) drug therapy
CPT/HCPCS: 80053; 85652; 96365; 96366; 96413; 96415; 85025; 86140; J1745

== ENCOUNTER 2021-01-18 08:00 | Outpatient (RCR) | payer OTHER, SELFPAY ==
[2020-11-29 00:11] VITALS: BP 120/73; PULSE 75; RESP 17; TEMP 37
[2021-01-18] VITALS (7 sets, daily range): BP systolic 103–118; BP diastolic 64–80; PULSE 65–79; RESP 16–24; TEMP 36.4–36.9; O2SAT 97–100
[2021-01-18] MEDS: diphenhydrAMINE 25 MG CAP PO (07:57)
[2021-01-18] MEDS: Acetaminophen 325 MG TAB 650 MG PO (07:58)
[2021-01-18] MEDS: Normal Saline Flush 10 ML SYR IVP (08:17)
[2021-01-18] MEDS: inFLIXimab 300 MG in Normal Saline 250 ML 125 MG IVPB (08:19)
[2021-01-18 11:26] LABS: Abs Immature Grans 0.05 10^3/uL (0.0-0.06); Absolute Basophil Count 0.03 10^3/uL (0.0-0.2); Absolute Monocyte Count 0.54 10^3/uL (0.1-0.8); Basophils % 0.3; Eosinophils % 0.4; HCT 41.4 % (36.0-46.0); HGB 13.6 g/dL (11.2-15.7); Immature Grans % 0.4; Lymphocytes % 15.2; MCH 28.3 pg (27.0-33.0); MCHC 32.9 % (32.0-36.0); MCV 86.1 fL (80-95); MPV 10.2 fL (8.0-11.0); Monocytes % 4.8; Neutrophils % 78.9; Nucleated RBC 0 %; Platelet Count 287 10^3/uL (130-400); RBC 4.81 10^6/uL (3.93-5.22); RDW 12.4 % (11.7-14.6); RDW-SD 39.3 fL; WBC 11.19 10^3/uL (4.4-10.8)
[2021-01-18 11:30] LABS: ESR 8 mm//hr (0-20)
[2021-01-18 11:31] LABS: Absolute Eosinophil Count 0.04 10^3/uL (0.0-0.7); Absolute Neutrophil Count 8.83 10^3/uL (1.2-6.7)
[2021-01-18 11:40] LABS: ALT 25 U/L (14-59); AST 14 U/L (15-37); Albumin 3.6 g/dL (3.4-5.0); Alkaline Phosphatase 61 U/L (46-116); Anion Gap 9.5 mmol/L (3-11); BUN 9 mg/dL (7-18); Bilirubin, Total 0.5 mg/dL (0.2-1.0); CO2 23.5 mmol/L (21.0-32.0); CREATININE 0.7 mg/dL (0.55-1.02); Calcium 8.1 mg/dL (8.5-10.1); Chloride 110 mmol/L (98-107); Glucose 95 mg/dL (74-106); Potassium 3.6 mmol/L (3.5-5.1); Sodium 143 mmol/L (136-145); Total Protein 6.8 g/dL (6.4-8.2)
[2021-01-18 11:50] LABS: C-Reactive Protein 0.12 mg/dL (0.0-0.3)
== END 2021-01-28 23:59 | disposition home or self-care (01) ==
LOC: INF 08:00
PROVIDERS: Nurse Practitioner Family; PCP Nurse Practitioner; Visit Provider Nurse Practitioner Family
DX: M08.9A Juvenile arthritis, unspecified, other specified site (principal); Z79.899 Other long term (current) drug therapy
CPT/HCPCS: 36415; 80053; 85652; 96365; 96366; 96413; 96415; 85025; 86140; J1745

== ENCOUNTER 2021-03-15 01:37 | Outpatient (RCR) | payer OTHER, SELFPAY ==
[2021-01-29 00:02] VITALS: BP 118/75; PULSE 65; RESP 16; TEMP 36.5
[2021-03-15] VITALS (7 sets, daily range): BP systolic 114–132; BP diastolic 71–82; PULSE 53–78; RESP 12–14; TEMP 36.9–37.1; O2SAT 97–99
[2021-03-15] MEDS: diphenhydrAMINE 25 MG CAP PO (07:58)
[2021-03-15] MEDS: Acetaminophen 325 MG TAB 650 MG PO (07:58)
[2021-03-15] MEDS: Normal Saline Flush 10 ML SYR IVP (08:29)
[2021-03-15] MEDS: inFLIXimab 300 MG in Normal Saline 250 ML 125 MG IVPB (08:29)
== END 2021-03-30 23:59 | disposition home or self-care (01) ==
LOC: INF 01:37
PROVIDERS: PCP Nurse Practitioner; Visit Provider Nurse Practitioner Family
DX: M08.00 Unspecified juvenile rheumatoid arthritis of unspecified site (principal); Z79.899 Other long term (current) drug therapy
CPT/HCPCS: 96365; 96366; 96413; 96415; J1745

== ENCOUNTER 2021-04-20 15:04 | Outpatient (CLI) | payer OTHER, SELFPAY ==
--- NOTE | 2021-04-20 11:00 | DI.RAD_ITS ---
Exam(s) XR CHEST 2V PA LATERAL EXAM: XR CHEST 2V PA LATERAL sign CLINICAL HISTORY: Eval for pneumonia (Hx PNAs 2' RA),congestion, cough,r05,z87.01. TECHNIQUE: 2D digital imaging was performed. COMPARISON: CR CHEST 2 VIEWS PA,LAT from 02/18/2017 FINDINGS: Heart size is normal. The mediastinum is not widened. Lungs are clear. No infiltrates nor pleural effusions. IMPRESSION: No acute pulmonary findings. DATA REPOSITORY: RADIATION DOSE DELIVERED:
== END 2021-04-20 15:24 ==
PROVIDERS: PCP Nurse Practitioner; Visit Provider Student in an Organized Health Care Education/Training Program
DX: R05 Cough (principal); R09.89 Other specified symptoms and signs involving the circulatory and respiratory systems; Z87.01 Personal history of pneumonia (recurrent)
CPT/HCPCS: 71046

== ENCOUNTER 2021-05-03 02:53 | Outpatient (RCR) | payer OTHER, SELFPAY ==
[2021-03-31 00:03] VITALS: BP 114/77; PULSE 67; RESP 14; TEMP 37
[2021-05-03] VITALS (7 sets, daily range): BP systolic 108–137; BP diastolic 63–83; PULSE 62–77; RESP 16–20; TEMP 37–37.2; O2SAT 99–100
[2021-05-03] MEDS: diphenhydrAMINE 25 MG CAP PO (07:55)
[2021-05-03] MEDS: Acetaminophen 325 MG TAB 650 MG PO (07:55)
[2021-05-03] MEDS: Normal Saline Flush 10 ML SYR IVP (07:56)
[2021-05-03] MEDS: inFLIXimab 300 MG in Normal Saline 250 ML 125 MG IVPB (08:35)
== END 2021-05-31 23:59 | disposition home or self-care (01) ==
LOC: INF 02:53
PROVIDERS: PCP Nurse Practitioner; Visit Provider Nurse Practitioner Family
DX: M06.9 Rheumatoid arthritis, unspecified (principal)
CPT/HCPCS: 96365; 96413; J1745

== ENCOUNTER 2022-07-25 10:53 | Outpatient (REF) | payer OTHER, SELFPAY ==
--- NOTE | 2022-07-25 09:50 | PAPFT_PTH ---
PATIENT: Merlyn Burton LOC: [facility] U#:[id number] AGE/SX: 26/F ROOM: RE07/25/[address]: Merlyn Plascencia MD : 1995 BED: DIS: 07/25/2022 SPEC #: [id number] RECD: 07/25/22 12:57 STATUS: MAXIMILIAN REQ #: [id number] ARNAV: 07/25/22 09:[address]: Merlyn Plascencia DEPT: [facility] Cytology RECD BY: Latoya Flynn ENTERED: 07/25/22 12:58 SP TYPE: PAPFT OTHR DR: Tara Kumar APRN Tissues: 1 - CX/ENDOCX FOR PAP SMEARS Procedures: PAP THIN PREP/[facility] Screening Comments: [id number]
== END 2022-07-25 10:54 | disposition home or self-care (01) ==
LOC: LBN 10:53
PROVIDERS: PCP Nurse Practitioner; Visit Provider Obstetrics & Gynecology
DX: Z12.4 Encounter for screening for malignant neoplasm of cervix (principal)
CPT/HCPCS: 88142

== ENCOUNTER 2023-06-13 13:08 | Outpatient (REF) | payer OTHER, SELFPAY ==
[2023-06-14 15:05] LABS: Chlamydia Result Negative (Negative); GC Result Negative (Negative)
== END 2023-06-13 13:09 | disposition home or self-care (01) ==
LOC: LBN 13:08
PROVIDERS: PCP Nurse Practitioner; Visit Provider Nurse Practitioner Women's Health
DX: Z11.3 Encounter for screening for infections with a predominantly sexual mode of transmission (principal)
CPT/HCPCS: 87491; 87591

== ENCOUNTER 2024-01-17 11:11 | Emergency (ER) | payer OTHER, SELFPAY ==
[2024-01-17 11:13] VITALS: BP 109/86; PULSE 60; RESP 16; TEMP 36.8; O2SAT 96
--- NOTE | 2024-01-17 11:19 | ED.GENADUL_ITS ---
Discharge Plan Disposition Patient Disposition: Home Condition: Good Discharge Details Clinical Impression: Foot fracture, left Primary Care Provider: Tara Kumar ED Provider: Vipin Cochran Home Meds and New Rx's Prescriptions: No Action albuterol sulfate 0.63 mg/3 mL solution for nebulization 0.63 mg inhalation Q6H PRN (Reason: shortness of breath or wheezing) Qty: 90 3RF Rx Instructions: Please use TID x 3 days minimum to start. semaglutide (weight loss) 1 mg/0.5 mL pen injector 1 mg subcut QWEEK Qty: 2 2RF lisdexamfetamine 20 mg capsule 20 mg PO DAILY MDD 20mg Qty: 28 0RF lisdexamfetamine 20 mg capsule 20 mg PO DAILY MDD 20mg Qty: 28 0RF lisdexamfetamine 20 mg capsule 20 mg PO DAILY MDD 20mg Qty: 28 0RF norethindrone-e.estradiol-iron [Loestrin Fe 10/20 (28-Day)] 1 mg-20 mcg (21)/75 mg (7) tablet 1 tab PO DAILY Qty: 84 0RF (DME) nebulizers [AeroEclipse II Nebulizer] Misc See Rx Instructions .ROUTE .MEDSUPPLY Qty: 1 0RF Rx Instructions: As directed ibuprofen 800 mg tablet 800 mg PO Q8H PRN (Reason: fever or pain) Qty: 270 1RF rizatriptan [Maxalt] 10 mg tablet See Rx Instructions PO .COMPLEX Qty: 14 6RF Rx Instructions: take 1 tab at onset of headache; if no relief may repeat 1 tab after at least 2 hrs; max = 3 tabs/24 hr PO Discharge Instructions Instructions: Foot Fracture in Adults (ED) Additional Instructions: At this time you have a small fracture in your cuboid bone on the left foot. You also have damage to the superficial cutaneous nerve in that area. Please try to remain nonweightbearing for the next week, then you can gently apply weightbearing as tolerated for that foot with the Aircast on. Please take Tylenol Motrin as needed for pain. Please take a B complex vitamin to help with the nerve growth and regeneration. It may take months for the sensation to come back. If you have persistent pain after few weeks that is not improving you may need to follow-up with an infantry operations specialist. If you notice any worsening of your symptoms, or any new symptoms such as vomiting, diarrhea, fever, chills, shortness of breath, chest pain, numbness, weakness, or fainting , please return immediately to the emergency department for reevaluation. Please follow up with your primary care provider as soon as possible for reassessment and reevaluation. As always, it was a pleasure participating in your medical care today. Stand Alone Forms: Work Release Referrals: Tara Kumar NP [Primary Care Provider] - Discharge Data Discharge Date/Time-TO BE ENTERED AT DEPARTURE: 01/17/24 12:45 HPI General Date/Time Provider Initiated Documentation: 01/17/24 11:17 . 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 Patient states that she was at the weight room 2 hours ago when a 45 pound weight fell onto the lateral aspect of left foot. It initially hurt, but shortly thereafter the pain worsened and she developed numbness and tingling on the lateral aspect of her foot. She denies any other complaints at this time. Pain is made worse with movement. She did take 1000 mg of ibuprofen for treatment of the pain. She denies any other complaints at this time. Related Data Home Medications Medication Instructions Recorded Confirmed nebulizers (AeroEclipse II #1 ea 04/19/21 12/04/23 Nebulizer) rizatriptan 10 mg tablet (Maxalt) See Rx Instructions PO .COMPLEX 05/13/22 01/17/24 #14 tabs ibuprofen 800 mg tablet 800 mg PO Q8H PRN fever or pain 02/19/23 01/17/24 #270 tabs albuterol sulfate 0.63 mg/3 mL 0.63 mg (3 mL) inhalation Q6H PRN 08/07/23 01/17/24 solution for nebulization shortness of breath or wheezing #90 mL lisdexamfetamine 20 mg capsule 20 mg PO DAILY #28 caps 10/30/23 01/17/24 lisdexamfetamine 20 mg capsule 20 mg PO DAILY #28 caps 10/30/23 01/17/24 lisdexamfetamine 20 mg capsule 20 mg PO DAILY #28 caps 10/30/23 01/17/24 semaglutide (weight loss) 1 mg/0.5 1 mg (0.5 mL) subcut QWEEK #2 mL 10/30/23 01/17/24 mL subcutaneous pen injector norethindrone 1 mg-ethinyl 1 tab PO DAILY #84 tabs 12/04/23 01/17/24 estradiol 20 mcg (21)-iron 75 mg (7) tablet (Loestrin Fe 10/20 (28-Day)) Previous Rx's Medication Instructions Recorded nebulizers (AeroEclipse II #1 ea 04/19/21 Nebulizer) rizatriptan 10 mg tablet (Maxalt) See Rx Instructions PO .COMPLEX 05/13/22 #14 tabs ibuprofen 800 mg tablet 800 mg PO Q8H PRN fever or pain 02/19/23 #270 tabs albuterol sulfate 0.63 mg/3 mL 0.63 mg (3 mL) inhalation Q6H PRN 08/07/23 solution for nebulization shortness of breath or wheezing #90 mL lisdexamfetamine 20 mg capsule 20 mg PO DAILY #28 caps 10/30/23 lisdexamfetamine 20 mg capsule 20 mg PO DAILY #28 caps 10/30/23 lisdexamfetamine 20 mg capsule 20 mg PO DAILY #28 caps 10/30/23 semaglutide (weight loss) 1 mg/0.5 1 mg (0.5 mL) subcut QWEEK #2 mL 10/30/23 mL subcutaneous pen injector norethindrone 1 mg-ethinyl 1 tab PO DAILY #84 tabs 12/04/23 estradiol 20 mcg (21)-iron 75 mg (7) tablet (Loestrin Fe 10/20 (28-Day)) Allergies Allergy/AdvReac Type Severity Reaction Status Date / Time clindamycin Allergy Severe berta Verified 01/17/24 11:18 dk syndrome amoxicillin trihydrate Allergy Intermediate unknown Verified 01/17/24 11:18 [From Augmentin] erythromycin base Allergy Intermediate Other (See Verified 01/17/24 11:18 Comment) Penicillins Allergy Intermediate blisters/hi Verified 01/17/24 11:18 ves potassium clavulanate Allergy Intermediate other Verified 01/17/24 11:18 [From Augmentin] capsaicin [From Capzasin] Allergy topical, Verified 01/17/24 11:18 swelling redness infliximab [From Remicade] Allergy Vomiting Verified 01/17/24 11:18 menthol [From Capzasin] Allergy topical, Verified 01/17/24 11:18 swelling redness General Stated Complaint: Orthopedic ALVARO: 4 Review of Systems All systems reviewed & are unremarkable except as noted in HPI and below Exam Narrative Exam Narrative: 1.Const: Well-nourished, Well-developed, appearing stated age 2.Eyes: PERRL, no conjunctival injection, and symmetrical lids. 3.ENT: Atraumatic external nose and ears. Moist MM. Neck: Symmetric, trachea midline, No thyromegaly. 4.CVS: +S1/S2, No murmurs or gallops. Peripheral pulses 2+ and equal in all extremities. Brisk capillary refill in all extremities. 5.RESP: Unlabored respiratory effort. Clear to auscultation bilaterally. No wheezes rales or rhonchi 6.GI: Nondistended, No guarding or rebound. 7.MSK: Patient's left foot demonstrates tenderness over the second third fourth and fifth lateral metatarsals and the base of the MTPs for those associated digits. Minimal tenderness over the lateral malleolus. Diminished sensation for the second third fourth and fifth digits and the lateral aspect of the foot. Normal sensation on the medial aspect of the foot. No proximal tip/fib tenderness. Brisk capillary refill, dorsalis pedis +2 bilaterally. 8.Skin: Warm, Dry. No rashes or lesions. 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 Sensation grossly intact, no focal neurologic deficits. 10.Psych: (AAO) x3. Appropriate mood and affect Course Vital Signs Vital signs: Vital Signs Temperature 36.8 C 01/17/24 11:13 Pulse 60 01/17/24 11:13 Respiratory Rate 16 01/17/24 11:13 Blood Pressure 109/86 01/17/24 11:13 Pulse Oximetry 96 01/17/24 11:13 Temperature 36.8 C 01/17/24 11:13 Temperature Source Oral 01/17/24 11:13 Pulse 60 01/17/24 11:13 Respiratory Rate 16 01/17/24 11:13 Respiratory Effort Normal 01/17/24 11:19 Blood Pressure 109/86 01/17/24 11:13 Pulse Oximetry 96 01/17/24 11:13 Oxygen Delivery Method Room Air 01/17/24 11:13 Oxygen Flow Rate 0 01/17/24 11:13 Pain Level 7 01/17/24 11:13 Medical Decision Making 28-year-old female with a past medical history of rheumatoid arthritis not currently on any antirheumatic medication, who takes oral contraceptives, who is a nurse, 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 Patient states that she was at the weight room 2 hours ago when a 45 pound weight fell onto the lateral aspect of left foot. It initially hurt, but shortly thereafter the pain worsened and she developed numbness and tingling on the lateral aspect of her foot. She denies any other complaints at this time. Pain is made worse with movement. She did take 1000 mg of ibuprofen for treatment of the pain. She denies any other complaints at this time. Exam demonstrates tenderness over the second through fifth lateral metatarsals, as well as tenderness over the metatarsal phalangeal joints. Diminished sensation in these areas as well, concern for disruption to the lateral branch of the superficial peroneal nerve. Will get an x-ray to rule out fracture. Will give a gram of Tylenol, will monitor closely and reassess. 1 PM X-ray positive for lucency in the distal aspect of the cuboid bone which correlates well with the patient's symptomatology and pain. Will give walking boot and crutches for home use. Recommend continued NSAIDs at home. Discussed the potentially protracted clinical course for nerve injury after injury like this. Recommend continued nonweightbearing for the next week with gradual transition to weightbearing as tolerated. Discussed red flags for which to return, the importance of taking a B complex vitamin for nerve healing, and the discussion that if her symptoms persist she may need orthopedic follow-up on an outpatient basis. I have extensively reviewed the treatment plan and discharge instructions with the patient. I have addressed all patient concerns at this time. The patient was made aware of what symptoms to monitor for that would ander ant a return to the emergency department. Discussed the plan with the patient, they demonstrate verbal understanding and agreement with our assessment and plan at this time. The documentation in this chart was dictated using [employer] dictation software. Please excuse any dictation errors. FINDINGS: BONES: There is a lucency seen on the oblique view of the foot in the distal cuboid. It is only appreciated on the single view. This may represent a superimposition of shadows. Nondisplaced fracture should be considered. Please correlate with the patient's site of pain. No bony destructive lesion is seen. JOINTS:The ankle mortise is normally aligned. The joint spaces are well maintained. SOFT TISSUE: Normal. IMPRESSION: Longitudinally oriented lucency in the distal aspect of the cuboid bone on the oblique view of the foot. Please correlate with the patient's site of pain. Nondisplaced fracture may be considered. Follow-up as clinically appropriate. Quality:SDOH Health Related Social Needs: No Data to Display PFSH All Active Problems (Updated 01/17/24 @ 12:35 by Vipin Cochran DO) Foot fracture, left (Acute) Encounter for counseling regarding contraception (Acute) Adult ADHD (Acute) Obesity, Class II, BMI 35-39.9 (Acute) ABDULKADIR (juvenile idiopathic arthritis) (Acute) Dx age 4,methotrexate since age 5, enbrel since age was discontinued with positive test. Patient currently treated with Medrol daily. 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 Do you feel safe at home: Yes Do you feel safe in your relationship?: Yes Additional Social history: Mother is Evie RN on BC. Female Reproductive History Menstrual control method: progestin IUCD (Mirena IUD inserted 08/05/[address] Rayo LOT# [id number] EXP OCT 2021) History History 1 Para 1 Hx # Term Pregnancies Multiple births Hx # Pregnancies Ectopic pregnancies AB induced Hx Number of Living Children 1 AB spontaneous Past Pregnancies Del. Date GA/Weeks # Preg Succ Route Wgt Sex Labor Lgth Anesth esia Location Prov Complic 06/17/19 39 No 3883.885 g Male regional other Dr Juan Rayo other Delivery Date: 06/17/19 Last Updated by: Annette Riggs LPN [facility]
[2024-01-17] MEDS: Acetaminophen 500 MG TAB 1000 MG PO (11:35)
--- NOTE | 2024-01-17 11:45 | DI.RAD_ITS ---
Exam(s) XR FOOT LT COMPLETE XR ANKLE LT COMPLETE EXAM: XR ANKLE LT COMPLETE and XR foot LT complete CLINICAL HISTORY: 45lbs weight fell on left ankle TECHNIQUE: 2D digital imaging was performed of the left foot and ankle. Six images were obtained. AP, lateral and oblique views were obtained. COMPARISON: CR XR FOOT LT COMPLETE from 01/17/2024 FINDINGS: BONES: There is a lucency seen on the oblique view of the foot in the distal cuboid. It is only appr eciated on the single view. This may represent a superimposition of shadows. Nondisplaced fracture should be considered. Please correlate with the patient's site of pain. No bony destructive lesion is seen. JOINTS:The ankle mortise is normally aligned. The joint spaces are well maintained. SOFT TISSUE: Normal. IMPRESSION: Longitudinally oriented lucency in the distal aspect of the cuboid bone on the oblique view of the fo ot. Please correlate with the patient's site of pain. Nondisplaced fracture may be considered. Fol low-up as clinically appropriate. DATA REPOSITORY: RADIATION DOSE DELIVERED:
== END 2024-01-17 12:45 | disposition home or self-care (01) ==
PROVIDERS: Emergency Provider Student in an Organized Health Care Education/Training Program; PCP Nurse Practitioner
DX: S92.215A Nondisplaced fracture of cuboid bone of left foot, initial encounter for closed fracture (principal); M06.9 Rheumatoid arthritis, unspecified; W20.8XXA Other cause of strike by thrown, projected or falling object, initial encounter; Y93.B3 Activity, free weights
CPT/HCPCS: 81025; 99283; 73610; 73630

== ENCOUNTER 2024-02-07 15:40 | Outpatient (CLI) | payer OTHER, SELFPAY ==
--- NOTE | 2024-02-07 13:45 | DI.RAD_ITS ---
Exam(s) XR FOOT LT COMPLETE EXAM: XR FOOT LT COMPLETE CLINICAL HISTORY: LEFT FT FX. TECHNIQUE: 2D digital imaging was performed. Three views. COMPARISON: CR XR ANKLE LT COMPLETE from 01/17/2024 CR XR FOOT LT COMPLETE from 01/17/2024 FINDINGS: BONES: The previously noted lucency in the distal cuboid is not visible on the current exam. No new abnormalities are seen. No bony destructive lesion is seen. JOINTS: No dislocation present. SOFT TISSUE: Normal. IMPRESSION: Previously noted lucency in the cuboid is not visible on the current exam. DATA REPOSITORY: RADIATION DOSE DELIVERED:
== END 2024-02-07 15:41 | disposition home or self-care (01) ==
LOC: DIORS 15:40
PROVIDERS: PCP Nurse Practitioner; Visit Provider Physician Assistant
DX: S92.212D Displaced fracture of cuboid bone of left foot, subsequent encounter for fracture with routine healing (principal); X58.XXXD Exposure to other specified factors, subsequent encounter
CPT/HCPCS: 73630

== ENCOUNTER 2025-06-16 03:50 | Outpatient (CLI) | payer BC, SELFPAY ==
[2025-06-16 14:37] LABS: Abs Immature Grans 0.03 10^3/uL (0.0-0.06); HCT 39.1 % (36.0-46.0); HGB 13.3 g/dL (11.2-15.7); Immature Grans % 0.3 %; MCH 29.8 pg (27.0-33.0); MCHC 34.0 % (32.0-36.0); MCV 88 fL (80-95); MPV 10.0 fL (8.0-11.0); Platelet Count 342 10^3/uL (130-400); RBC 4.46 10^6/uL (3.93-5.22); RDW 13.1 % (11.7-14.6); RDW-SD 41.8 fL; WBC 8.74 10^3/uL (4.4-10.8)
[2025-06-16 15:49] LABS: TSH (W/Ref FT4) 0.77 uIU/mL (0.36-3.74)
[2025-06-17 10:14] LABS: HIV-1/2 Ag & Ab Screen Negative (Negative)
[2025-06-17 10:18] LABS: Rubella IgG Ab (UVM) Negative (See Note)
[2025-06-17 12:02] LABS: Hepatitis C Ab w Rflx HCV PCR Negative (Negative)
[2025-06-18 18:01] LABS: Syphilis IgG w/Reflex Nonreactive (Nonreactive)
== END 2025-06-16 03:51 | disposition home or self-care (01) ==
LOC: LBO 03:50
PROVIDERS: Advanced Practice Midwife; PCP Nurse Practitioner; Visit Provider Advanced Practice Midwife
DX: Z34.91 Encounter for supervision of normal pregnancy, unspecified, first trimester (principal)
CPT/HCPCS: 36415; 86787; 86803; 86850; 86900; 86901; 87340; 87389; 84443; 85025; 86762; 86780

== ENCOUNTER 2025-06-16 13:23 | Outpatient (REF) | payer BC, SELFPAY ==
[2025-06-17 13:30] LABS: Chlamydia Result Negative (Negative); GC Result Negative (Negative)
== END 2025-06-16 13:24 | disposition home or self-care (01) ==
LOC: LBN 13:23
PROVIDERS: PCP Nurse Practitioner; Visit Provider Advanced Practice Midwife
DX: Z34.91 Encounter for supervision of normal pregnancy, unspecified, first trimester (principal)
CPT/HCPCS: 87491; 87591; 87086

== ENCOUNTER 2025-07-14 11:09 | Outpatient (CLI) | payer BC, SELFPAY ==
--- NOTE | 2025-07-14 11:00 | RT.EKG_ITS ---
APPROVED REPORT Exam: Resting ECG Reason for Exam: tachycardia episodes Patient Location: O HR:78 bpm ECG Measurements Heart Rate 78 AXIS AK 146 P 46 QRSd 96 QRS 73 QT 368 T 32 QTc 420 Conclusion Sinus rhythm...normal P axis, V-rate 50- 99 Normal Electrocardiogram
--- NOTE | 2025-07-21 10:11 | W.HOLTRPT ---
Date of service: 07/21/25 Time of Service: 10:12 Holter Monitor Report Referring Provider:: Roseanna Hager Indications:: , tachycardia Holter Monitor Note: This is a 48-hour Holter monitor. Rhythm throughout was sinus with an average heart rate of 80. Minimum was 49, maximum 138 There were 28 premature ventricular contractions. There were 19 premature atrial contractions. There was no atrial fibrillation, no SVT, no high-grade AV block, no pauses greater than 3 seconds. No symptoms were reported
== END 2025-07-14 11:10 | disposition home or self-care (01) ==
PROVIDERS: PCP Nurse Practitioner Family; Visit Provider Advanced Practice Midwife
DX: R00.0 Tachycardia, unspecified; O99.412 Diseases of the circulatory system complicating pregnancy, second trimester; Z3A.15 15 weeks gestation of pregnancy
CPT/HCPCS: 93005; 93010; 93225; 93226

== ENCOUNTER 2025-09-19 16:50 | Emergency (ER) | payer BC, SELFPAY ==
[2025-09-19] VITALS (8 sets, daily range): BP systolic 106–131; BP diastolic 51–85; PULSE 80–108; RESP 13–39; TEMP 36.8; O2SAT 97–98
--- NOTE | 2025-09-19 17:12 | ED.GENADUL_ITS ---
Discharge Plan Disposition Patient Disposition: Home Condition: Stable Discharge Details Clinical Impression: COVID-19 affecting in second trimester Primary Care Provider: Carmelita Parker ED Provider: Sadie Servin Home Meds and New Rx's Prescriptions: New albuterol sulfate 90 mcg/actuation HFA aerosol inhaler 2 puff IH QID PRN (Reason: shortness of breath or wheezing) Qty: 8 0RF Rx Instructions: Take 1 to 2 puffs every 4-6 hours as needed for shortness of breath, cough or wheezing Paxlovid 300 mg (150 mg x 2)-100 mg tablets,dose pack See Rx Instructions .ROUTE .COMPLEX Qty: 15 0RF Rx Instructions: take TWO 150 mg tablets of nirmatrelvir with ONE 100 mg tablet of ritonavir twice daily for 5 days No Action (DME) nebulizers [AeroEclipse II Nebulizer] [facility] – [place], [place] See Rx Instructions .ROUTE .MEDSUPPLY Qty: 1 0RF Rx Instructions: As directed albuterol sulfate 0.63 mg/3 mL solution for nebulization 0.63 mg inhalation Q6H PRN (Reason: shortness of breath or wheezing) Qty: 90 3RF Rx Instructions: Please use TID x 3 days minimum to start. rizatriptan [Maxalt] 10 mg tablet See Rx Instructions PO .COMPLEX Qty: 14 6RF Rx Instructions: take 1 tab at onset of headache; if no relief may repeat 1 tab after at least 2 hrs; max = 3 tabs/24 hr PO Plus Vitamin-Mineral 27 mg iron- 1 mg tablet 1 tab PO DAILY Qty: 90 6RF Discharge Instructions Instructions: COVID-19 and ED, Prone Position Additional Instructions: You have tested positive for COVID today. I did contact Dr. Cunningham with [facility] [facility] who also is in agreement that Paxlovid is safe for . Please take this as directed. A additional albuterol inhaler was also sent to the pharmacy on file. Follow up with primary care provider in 3-5 days. Return to ED sooner if any worsening or concerns. Stand Alone Forms: Portal Information Referrals: [facility] [Provider Group] - 5 days Clinical Impression: COVID-19 affecting in second trimester Carmelita Parker APRN [Primary Care Provider, Family Practice] - 1 week Clinical Impression: COVID-19 affecting in second trimester HPI General Mode of arrival: ambulatory . Date/Time Provider Initiated Documentation: 09/19/25 17:01 . Limitations to Documentation: no limitations . Information obtained by: patient, RN notes reviewed and old records reviewed . HPI Narrative: 29 year old female presents to the ER with URI type symptoms since . Sent here for Flu testing from [facility] [facility]. Reports dry cough and upper back pain. Began initially with GI symptoms which has since resolved. Had an albuterol treatment today at [address] [employer]. Lungs are clear to auscultation upon arrival. Related Data Home Medications ?Medication ?Instructions ?Recorded ?Confirmed nebulizers (AeroEclipse II #1 ea 04/19/21 09/01/25 Nebulizer) albuterol sulfate 0.63 mg/3 mL 0.63 mg (3 mL) inhalati on Q6H PRN 01/06/25 09/19/25 solution for nebulization shortness of breath or wheez ing #90 mL rizatriptan 10 mg tablet (Maxalt) See Rx Instructions PO .COMPLEX 01/06/25 09/19/25 Held on 05/26/25. #14 tabs Instructions: Changed by Provider vitamins no.180-ferrous 1 tab PO DAILY #90 ta bs 05/26/25 09/19/25 fumarate 27 mg-folic acid 1 mg tablet ( Plus Vitamin-Mineral) albuterol sulfate 90 mcg/actuation 2 puff inhalation Q ID PRN 09/19/25 aerosol inhaler shortness of breath or wheez ing #8 grams nirmatrelvir 300 mg (150 mg See Rx Instructions PO .CO MPLEX 09/19/25 x2)-ritonavir 100 mg tablet,dose Covid #15 tabs pack (Paxlovid) Previous Rx's ?Medication ?Instructions ?Recorded nebulizers (AeroEclipse II #1 ea 04/19/21 Nebulizer) albuterol sulfate 0.63 mg/3 mL 0.63 mg (3 mL) inhalati on Q6H PRN 01/06/25 solution for nebulization shortness of breath or wheez ing #90 mL rizatriptan 10 mg tablet (Maxalt) See Rx Instructions PO .COMPLEX 01/06/25 Held on 05/26/25. #14 tabs Instructions: Changed by Provider vitamins no.180-ferrous 1 tab PO DAILY #90 ta bs 05/26/25 fumarate 27 mg-folic acid 1 mg tablet ( Plus Vitamin-Mineral) albuterol sulfate 90 mcg/actuation 2 puff inhalation Q ID PRN 09/19/25 aerosol inhaler shortness of breath or wheez ing #8 grams nirmatrelvir 300 mg (150 mg See Rx Instructions PO .CO MPLEX 09/19/25 x2)-ritonavir 100 mg tablet,dose Covid #15 tabs pack (Paxlovid) Allergies Allergy/AdvReac Type Severity Reaction Status Date / Time clindamycin Allergy Severe berta Verified 09/19/25 17:01 dk syndrome amoxicillin trihydrate (From Allergy Intermediate unknown Verified 09/19/25 17:01 Augmentin) erythromycin base Allergy Intermediate Other (See Verified 09/19/25 17:01 Comment) Penicillins Allergy Intermediate blisters/hi Verified 09/19/25 17:01 ves potassium clavulanate (From Allergy Intermediate other Verified 09/19/25 17:01 Augmentin) infliximab (From Remicade) Allergy Vomiting Verified 09/19/25 17:01 General Stated Complaint: SOB ALVARO: 3 Review of Systems All systems reviewed & are unremarkable except as noted in HPI and below Constitutional Constitutional: Reports as per HPI and Reports body ache(s) ENT Ears, Nose, Mouth, and Throat: Reports dry mouth Respiratory Respiratory: Reports as per HPI, Reports cough and Reports pain with cough Exam Narrative Exam Narrative: Constitutional: Alert and oriented x3. Appears stated age. Normal body habitus. Head: Normocephalic, no trauma. Eyes: , EOM's intact. Eyelids symmetrical without lesions, discharge, or swelling. Chest: RRR, Normal S1, S2, distal pulses intact. Resp: Lungs clear to auscultation bilaterally, no wheezes, rales, or rhonchi. Abdomen: Soft, non-distended, Normoactive bowel sounds all 4 quads. Musculoskeletal: Normal gait, Moves all 4 extremities without difficulty. Skin: No suspicious rashes or lesions. Capillary refill less than 2 sec. Neurologic: Cranial nerves II-XII intact. Alert and oriented x 3. Motor: No deficits noted. Hematologic/Lymphatic: No ecchymosis, no lymphadenopathy. Course Vital Signs Vital signs: Vital Signs Temperature 36.8 C 09/19/25 16:54 Pulse 100 H 09/19/25 16:54 Respiratory Rate 18 09/19/25 16:54 Blood Pressure 121/81 09/19/25 16:54 Pulse Oximetry 98 09/19/25 16:54 Temperature 36.8 C 09/19/25 16:54 Temperature Source Oral 09/19/25 16:54 Pulse 100 H 09/19/25 16:54 Respiratory Rate 18 09/19/25 16:54 Blood Pressure 121/81 09/19/25 16:54 Blood Pressure Position Sitting 09/19/25 16:54 Pulse Oximetry 98 09/19/25 16:54 Oxygen Delivery Method Room Air 09/19/25 16:54 Oxygen Flow Rate 0 09/19/25 16:54 Medical Decision Making 29 year old female presents to the ER with URI type symptoms since . Sent here for Flu testing from [facility] [facility]. Reports dry cough and upper back pain. Began initially with GI symptoms which has since resolved. Had an albuterol treatment today at [address] [employer]. Lungs are clear to auscultation upon arrival. FLUVID swab ordered. Positive for Covid, will consult with [facility] [facility]. I did discuss the positive COVID results with patient and significant other, they verbalized understanding. Spoke with Dr. Merlyn Cunningham who is very familiar with the patient she reports that Paxlovid is safe and the recommended treatment for the patient. I did discuss the recommendations with the patient. She became very agitated and began cussing at staff. She is concerned that we did not draw any labs and that she is having a hard time laying flat. I did discuss prone positioning with her, I discussed supportive symptomatic treatment and safe over-the- counter medications I also did refill her albuterol inhaler. Informed by bar staff that patient stated that she went into V. tach while here in the emergency department, there is no evidence for that patient remained hemodynamically stable throughout the remainder of her stay. Her heart rate did go up slightly when she was agitated to approximately 95-100 O2 sat remained 98 or above for entire stay. Lungs are clear to auscultation bilaterally no wheezing or rhonchi auscultated. She speaking in full sentences. I did offer to draw blood and give some IV fluids and check labs patient states just give me the fucking prescription so I can get out of here. Patient discharged with significant other in hemodynamically stable condition. This text was generated using [facility] dictation system, please disregard any oddities of phrase or misspellings. Medical Records Medical records reviewed: Yes I reviewed the patient's medical records. Lab Data Lab results reviewed: Yes I reviewed the patient's lab results. Labs: Laboratory Tests Range/Units 09/19/25 17:03 COVID-19 Source Nasopharynx SARS-CoV-2 (PCR) (Negative) Positive A Influenza Type A (PCR) (Negative) Negative Influenza Type B (PCR) (Negative) Negative RSV (PCR) (Negative) Negative PFSH All Active Problems (Updated 09/19/25 @ 18:24 by Sadie Servin NP) COVID-19 affecting in second trimester (Acute) (Acute) Tachycardia (Acute) Rubella non-immune status, antepartum (Acute) History of delivery, currently (Acute) Left cuboid fracture (Acute 01/17/24) Adult ADHD (Acute) Obesity, Class II, BMI 35-39.9 (Acute) ABDULKADIR (juvenile idiopathic arthritis) (Acute) Dx age 4,methotrexate since age 5, enbrel since age was discontinued with positive test. Patient currently treated with Medrol daily. 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) Medical History Crush injury of left foot History of obesity History of depression Reactive airway disease with acute exacerbation Cholelithiasis Burton-Dk syndrome for clindamycin while in [place] 2012 Surgical History S/P S/P laparoscopic cholecystectomy (~08/27/19) History of surgical removal of ganglion cyst (05/31/01) right H/O wisdom tooth extraction Family History Father CAD (coronary artery disease) Myocardial infarction Paternal Grandfather , COPD Respiratory disease Paternal Grandmother , Surgery Complication Neoplasm Lung Mother Ventricular tachycardia Social History Smoking/Tobacco Use Status: Never Smoking risk assessment performed?: Yes Alcohol Intake: never Drug use: Never Substance use type: does not use Number of Children: 0 Education Level: vocational current occupation: RN Do you feel safe at home: Yes Do you feel safe in your relationship?: Yes Additional Social history: Mother is Eive RN on BC. Female Reproductive History Menstrual control method: progestin IUCD History History 4 Para 1 Hx # Term Pregnancies 1 Multiple births 0 Hx # Pregnancies 0 Ectopic pregnancies 0 AB induced 0 Hx Number of Living Children 1 AB spontaneous 2 Past Pregnancies Del. Date GA/Weeks # Preg Succ Route Wgt Sex Labor Lgth Anesth esia Location Prov Complic 06/17/19 39 No Yes 3883.885 g Male regional other [facility] other 05/01/24 10/01/24 Delivery Date: 06/17/19 Last Updated by: Roseanna Hager CNM methotrexate exposure. scheduled primary c/s for suspected macrosomia and RA flare. Forcep & vacuum at delivery. Victor M. cholecystectomy at 6 weeks post . Large head. Delivery Date: 05/01/24 Last Updated by: Roseanna Hager CNM early SAB at 8 weeks. [facility]one at [facility] Delivery Date: 10/01/24 Last Updated by: Roseanna Hager CNM early SAB
[2025-09-19 17:58] LABS: RSV PCR Negative (Negative)
[2025-09-19 18:02] LABS: COVID-19 PCR Positive (Negative)
== END 2025-09-19 18:28 | disposition home or self-care (01) ==
PROVIDERS: Emergency Provider Registered Nurse Emergency; PCP Nurse Practitioner Family
DX: O98.512 Other viral diseases complicating pregnancy, second trimester (principal); U07.1 COVID-19
CPT/HCPCS: 99284; 99283; 87637

== ENCOUNTER 2025-09-20 21:45 | Observation (INO) | payer BC, SELFPAY ==
[2025-09-20] VITALS (25 sets, daily range): BP systolic 121–126; BP diastolic 61–78; PULSE 72–91; RESP 22–30; TEMP 36.8–37.1; O2SAT 97–100
--- NOTE | 2025-09-20 21:54 | HPE_ITS ---
Date of service: 09/20/25 Time of Service: 21:54 Assessment and Plan Assessment and plan (1) COVID-19 affecting in second trimester: Status: Acute Assessment and plan: Pt is a 29yo @24.5wks who was dx'd with covid yesterday when seen in the ED. Today she came in for monitoring due to decreased movement. Monitoring has been reassuring. Vitals have been normal save a brief desat after a coughing fit. Therefore she started some 02 which she feels better on. Physical exam is reassuring. She prefers observation overnight as she feels she will be able to rest better with the oxygen. She will have tylenol, albuterol and guaifenasen prn overnight. OB-HPI Labor/Delivery History of Present Illness Reason for Visit: NST Chief Complaint: Decreased Movement , Associated Signs and Symptoms of Decreased Movement: feeling less movement than usual. SOFIYA Calculator Estimated Delivery Date Method Current WG Current Estimate 01/05/26 LMP (Certain) 24w 5d Other Estimates 01/04/26 Ultrasound #1 24w 6d Comments: Pt is a 29yo @24.5wks who was dx'd with covid yesterday. She comes today because she has not been feeling the baby move as much today. She also has significant body aches and some cramping and has a hard time telling what is what right now. She is taking tylenol around the clock and her fever has not gone above 101-102. She has a cough and is using her albuterol every 2hrs. She denies vaginal bleeding of loss of fluid other than some urine leaking when she coughed really bad. Since arriving on the center she has felt increased movement. She is feeling back pain from coughing. Other than tylenol she has just tried tea and a hot bath/steam. History of Present Expected Delivery Route/Plan Undecided re: TOLAC? - FELICIA & MD KELLY/trice Marquez (has 11 yo son, 1st child together) BB will circ Rubella non-immune, offer MMR Specific Issues/Plan 1. Hx scheduled primary c/s, is considering TOLAC but undecided 2. s/p cholecystectomy 6 wks after c/s 3. first baby had left club foot 4. Rheumatoid arthritis (in remission) & heart-shaped uterus, offered [facility] [place]/MFM consult, pt declines 4a. Had a [place] experience [place] [facility] [place] past 4b. FAS done at [facility], pt had to return for 2nd imaging to complete survey, nml findings 5. Lost 100 lb last year on Wegovy and exercise, TSH 0.77 6. tachycardia episodes. HR with apple watch 180. EKG=NSR, Holter monitor x48 hrs=nml, cardiology referral at [facility]___ - Planning to transfer [place] [facility] [place]as [place]09[place]) 7. cfDNA - low risk, male, 8. Covid+, 09/19/25 Review of Systems Constitutional Constitutional: Reports system reviewed and no additional complaints, except as documented Gastrointestinal Gastrointestinal: Denies vomiting Comments: Mild nausea, no appetite Genitourinary Genitourinary: Reports system reviewed and no additional complaints, except as documented Musculoskeletal Comments: No regular contractions PFSH All Active Problems (Updated 09/19/25 @ 18:24 by Sadie Servin NP) COVID-19 affecting in second trimester (Acute) (Acute) Tachycardia (Acute) Rubella non-immune status, antepartum (Acute) History of delivery, currently (Acute) Left cuboid fracture (Acute 01/17/24) Adult ADHD (Acute) Obesity, Class II, BMI 35-39.9 (Acute) ABDULKADIR (juvenile idiopathic arthritis) (Acute) Dx age 4,methotrexate since age 5, enbrel since age was discontinued with positive test. Patient currently treated with Medrol daily. 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) Medical History Crush injury of left foot History of obesity History of depression Reactive airway disease with acute exacerbation Cholelithiasis Burton-Elisa syndrome for clindamycin while in [place] 2012 Surgical History S/P S/P laparoscopic cholecystectomy (~08/27/19) History of surgical removal of ganglion cyst (05/31/01) right H/O wisdom tooth extraction Family History Father CAD (coronary artery disease) Myocardial infarction Paternal Grandfather , COPD Respiratory disease Paternal Grandmother , Surgery Complication Neoplasm Lung Mother Ventricular tachycardia Social History Smoking/Tobacco Use Status: Never Smoking risk assessment performed?: Yes Alcohol Intake: never Drug use: Never Substance use type: does not use Number of Children: 0 Education Level: vocational current occupation: RN Do you feel safe at home: Yes Do you feel safe in your relationship?: Yes Additional Social history: Mother is Evie RN on BC. Female Reproductive History Menstrual control method: progestin IUCD History History 4 Para 1 Hx # Term Pregnancies 1 Multiple births 0 Hx # Pregnancies 0 Ectopic pregnancies 0 AB induced 0 Hx Number of Living Children 1 AB spontaneous 2 Past Pregnancies Del. Date GA/Weeks # Preg Succ Route Wgt Sex Labor Lgth Anesth esia Location [facility] 06/17/19 39 No Yes 8 lb 9 oz Male regional other [facility] other 05/01/24 10/01/24 Delivery Date: 06/17/19 Last Updated by: Roseanna Hager CNM methotrexate exposure. scheduled primary c/s for suspected macrosomia and RA flare. Forcep & vacuum at delivery. Victor M. cholecystectomy at 6 weeks post . Large head. Delivery Date: 05/01/24 Last Updated by: Roseanna Hager CNM early SAB at 8 weeks. [facility] at [facility] Delivery Date: 10/01/24 Last Updated by: Roseanna Hager CNM early SAB Meds Allergies and Home Medications Allergies Allergy/AdvReac Type Severity Reaction Status Date / Time clindamycin Allergy Severe berta Verified 09/19/25 17:01 elisa syndrome amoxicillin trihydrate (From Allergy Intermediate unknown Verified 09/19/25 17:01 Augmentin) erythromycin base Allergy Intermediate Other (See Verified 09/19/25 17:01 Comment) Penicillins Allergy Intermediate blisters/hi Verified 09/19/25 17:01 ves potassium clavulanate (From Allergy Intermediate other Verified 09/19/25 17:01 Augmentin) infliximab (From Remicade) Allergy Vomiting Verified 09/19/25 17:01 Home Medications ?Medication ?Instructions ?Recorded ?Confirmed ?Type nebulizers (AeroEclipse II #1 ea 04/19/21 09/01/25 Rx Nebulizer) albuterol sulfate 0.63 mg/3 mL 0.63 mg (3 mL) inhalati on Q6H PRN 01/06/25 09/19/25 Rx solution for nebulization shortness of breath or wheez ing #90 mL rizatriptan 10 mg tablet (Maxalt) See Rx Instructions PO .COMPLEX 01/06/25 09/19/25 Rx Held on 05/26/25. #14 tabs Instructions: Changed by Provider vitamins no.180-ferrous 1 tab PO DAILY #90 ta bs 05/26/25 09/19/25 Rx fumarate 27 mg-folic acid 1 mg tablet ( Plus Vitamin-Mineral) albuterol sulfate 90 mcg/actuation 2 puff inhalation Q ID PRN 09/19/25 Rx aerosol inhaler shortness of breath or wheez ing #8 grams nirmatrelvir 300 mg (150 mg See Rx Instructions PO .CO MPLEX 09/19/25 Rx x2)-ritonavir 100 mg tablet,dose Covid #15 tabs pack (Paxlovid) Exam Physical Exam Vital signs: Pulse BP Pulse Ox 75 124/67 100 09/20/25 21:36 09/20/25 21:14 09/20/25 21:29 Vital Signs Reviewed: Yes Narrative: O2 sat decreased briefly after a coughing fit. Pt feels better with o2 NC. Detailed Labor and Delivery Exam Angela Score: Cervical Points Exam 0 1 2 3 Dilation Closed 1-2cm 3-4 cm 5-6cm Effacement 0-30% 40-50% 60-70% 80% Consistency Firm Medium Soft Station -3 -2 -1,0 +1,+2 Position Posterior Mid Anterior Fetus A Heart Rate Baseline: 124 Assessment Note: Appropriate for early gestational age of 24.5 Detailed Respiratory Exam Respiratory: Present CTA bilaterally Detail Cardiovascular Exam Cardiovascular: Present RRR Detailed Abdominal Exam Comments: Abdomen gravid, nontender. Slight lower back tenderness bilaterally. Detailed Extremities Exam Extremities: Present edema (trace); Absent calf tenderness Risk Assessment Risk for Shoulder Dystocia Historical/Initial OB: NEGATIVE FOR: Pelvic Abnormality, Pre- BMI>30, Previous Shoulder Dystocia or Previous Macrosomia Risk for Pre-Eclampsia Date Initiated/Initials: not indicated. JK Yes, if one or more: NEGATIVE FOR: Hx Pre-E/Gest HTN, Chronic HTN, Multiple Gestation, Pre-gestational DM, Renal Disease, Systemic Lupus or APA Syndrome Yes, if 2 or more: NEGATIVE FOR: Nulliparity, Age>= 35 yrs, >10yr btwn pregnancies, BMI>30, ethinicty, Mother/Sister w/ Pre-E or Previous IUGR Risk for Post- Hemorrhage Initial: NEGATIVE FOR: Multiple Gestation, Previous PPH, Known Clotting Deficiency, Grand Multiparity or Anticoagulation Risks Reviewed Risks Reviewed Upon Admission: Yes
[2025-09-20] MEDS: guaiFENesin 200 MG/10 ML CUP 100 MG PO (22:59)
[2025-09-20] MEDS: Albuterol 2.5 MG/3 ML INH SOLN VIAL UPD (22:59)
[2025-09-21] MEDS: Albuterol 2.5 MG/3 ML INH SOLN VIAL UPD (00:32)
[2025-09-21 00:35] VITALS: O2SAT 98
== END 2025-09-21 02:40 | disposition home or self-care (01) ==
LOC: OBS 21:53
PROVIDERS: Admitting Provider Obstetrics & Gynecology; PCP Nurse Practitioner Family; Visit Provider Obstetrics & Gynecology
DX: O98.512 Other viral diseases complicating pregnancy, second trimester (principal); U07.1 COVID-19; Z3A.24 24 weeks gestation of pregnancy; O34.211 Maternal care for low transverse scar from previous cesarean delivery; N85.8 Other specified noninflammatory disorders of uterus; O99.512 Diseases of the respiratory system complicating pregnancy, second trimester; O99.112 Other diseases of the blood and blood-forming organs and certain disorders involving the immune mechanism complicating pregnancy, second trimester; O34.02 Maternal care for unspecified congenital malformation of uterus, second trimester; Q51.818 Other congenital malformations of uterus; O99.342 Other mental disorders complicating pregnancy, second trimester; F90.8 Attention-deficit hyperactivity disorder, other type; O99.712 Diseases of the skin and subcutaneous tissue complicating pregnancy, second trimester; J45.909 Unspecified asthma, uncomplicated; M34.9 Systemic sclerosis, unspecified; M08.88 Other juvenile arthritis, other specified site; E66.812 Obesity, class 2; Z28.39 Other underimmunization status; L51.1 Stevens-Johnson syndrome
CPT/HCPCS: 96360; G0378; J3490; J7613